=== PATIENT | male | born 1995 | race Caucasian/White ===

== ENCOUNTER 2017-09-21 20:52 | Emergency (ER) | payer OTHER ==
--- OUTSIDE RECORDS SUMMARY | 2017-09-21 20:54 | XMS REPORT | Clinical Summary ---
:1995 Author Organization [facility] Address [address] [place] [id number] Phone Care Team Providers Name Role Phone Unavailable Primary Care Provider Unavailable Allergies Not on File Current Medications Not on file Active Problems Not on file Encounters Date Type Specialty Care Team Description 09/17/2017 Orders Only Lab Yohana Farnsworth MD Cystic fibrosis with pulmonary manifestations ([facility]) (Primary Dx) 06/27/2017 Orders Only Lab Yohana Farnsworth MD CF (cystic fibrosis) ([facility]) (Primary Dx) 12/11/2016 Orders Only Lab Keyla Feng Cystic fibrosis with LIA Pittman pulmonary exacerbation ([facility]) (Primary Dx) 09/25/2016 Orders Only Lab Yohana Farnsworth MD CF (cystic fibrosis) ([facility]) (Primary Dx) after 09/20/2016 Social History Tobacco Use Types Packs/Day Years Used Date Never Assessed Sex Assigned at Date Recorded Not on file Last Filed Vital Signs Not on file Plan of Treatment Not on file Results CF Respiratory Culture ([facility] only) (09/17/2017 10:51 AM)Only the most recent of4 resultswithin the time period is included. Component Value Ref Range Result <1+ Streptococcus agalactiae (A)Comment: This is an appended report. These organism results have been appended to a previously final verified report. Specimen Performing Laboratory Sputum - Throat [address] [address] Narrative 2+ Normal respiratory tip present SPIN/CONCENTRATION CHARGE (06/27/2017 3:47 PM) Component Value Ref Range Concentration charged Done Specimen Performing Laboratory Sputum - Expectorated [address] [address] AFB culture + smear (06/27/2017 3:47 PM) Component Value Ref Range Result No acid-fast bacilli isolated in 42 days AFB Smear No acid fast bacilli seen Specimen Performing Laboratory Sputum - Expectorated [address] [address] Fungus culture + smear (06/27/2017 3:47 PM) Component Value Ref Range Result 2+ Tanika albicans (A) Fungus Smear No fungi seen Specimen Performing Laboratory Sputum - Expectorated [address] [address] after 09/20/2016
--- OUTSIDE RECORDS SUMMARY | 2017-09-21 20:54 | XMS REPORT ---
:1995 [facility] Address [address] [place] [id number] Care Team Providers Name Role Phone MOOSE METCALF MEGHANA Unavailable Unavailable KELSEA ALVARADO Unavailable Unavailable Problems This patient has no known problems. Allergies, Adverse Reactions, Alerts This patient has no known allergies or adverse reactions. Medications This patient has no known medications. Results Test Description Test Time Test Comments Text Results Atomic Results Result Comments CF RESPIRATORY CULTURE 2017-09-20 18:53:00 Test Item Value Reference Range Comments CULTURE (BEAKER) (test 2+ Normal respiratory tip <1+ Streptococcus tvvx=[id number]) present agalactiaeThis is an appended report. These organism results have been appended to a previously final verified report. 2+ Normal respiratory tip presentAFB CULTURE + [id number] 13:02:00 Test Item Value Reference Range Comments CULTURE (BEAKER) (test No acid-fast bacilli isolated oreo=8291) in 42 days AFB SMEAR (BEAKER) (test No acid fast bacilli seen qwag=824) FUNGUS CULTURE + [id number] 13:20:00 Test Item Value Reference Range Comments CULTURE (BEAKER) (test lbuk=4466) 2+ Tanika albicans FUNGUS SMEAR (BEAKER) (test No fungi seen fyep=0807) CF RESPIRATORY [id number] 08:56:00 Test Item Value Reference Range Comments CULTURE (BEAKER) (test PSEUDOMONAS 2+ Pseudomonas zekl=6570) AERUGINOSA aeruginosa Amikacin (test code=1) Susceptible 0-16 , Resistant <0 or >16 Aztreonam (test Susceptible 0-8 , code=32) Resistant <0 or >8 Cefepime (test code=51) Susceptible 0-8 , Resistant <0 or >8 Ceftazidime (test Susceptible 0-8 , code=27) Resistant <0 or >8 Ciprofloxacin (test Susceptible 0-1 , code=7) Resistant <0 or >1 Doripenem (test Susceptible 0-2 , hqre=984) Resistant <0 or >2 Gentamicin (test Susceptible 0-4 , code=18) Resistant <0 or >4 Imipenem (test code=19) Susceptible 0-2 , Resistant <0 or >2 Levofloxacin (test Susceptible 0-2 , code=22) Resistant <0 or >2 Meropenem (test Susceptible 0-2 , code=34) Resistant <0 or >2 Piperacillin (test Susceptible 0-16 , code=24) Resistant <0 or >16 Piperacillin + Susceptible 0-16 , Tazobactam (test Resistant <0 or >16 code=29) Tobramycin (test Susceptible 0-4 , code=25) Resistant <0 or >4 CULTURE (BEAKER) (test 1+ Beta-hemolytic xwmz=7087) streptococcus group B, by serological grouping CULTURE (Puma BiotechnologyAKER) (test PSEUDOMONAS 2+ Pseudomonas lykk=2646) AERUGINOSA aeruginosaof a second type Amikacin (test code=1) Susceptible 0-16 , Resistant <0 or >16 Aztreonam (test Susceptible 0-8 , code=32) Resistant <0 or >8 Cefepime (test code=51) Susceptible 0-8 , Resistant <0 or >8 Ceftazidime (test Susceptible 0-8 , code=27) Resistant <0 or >8 Ciprofloxacin (test Susceptible 0-1 , code=7) Resistant <0 or >1 Doripenem (test Susceptible 0-2 , rlmj=453) Resistant <0 or >2 Gentamicin (test Susceptible 0-4 , code=18) Resistant <0 or >4 Imipenem (test code=19) Susceptible 0-2 , Resistant <0 or >2 Levofloxacin (test Susceptible 0-2 , code=22) Resistant <0 or >2 Meropenem (test Susceptible 0-2 , code=34) Resistant <0 or >2 Piperacillin (test Susceptible 0-16 , code=24) Resistant <0 or >16 Piperacillin + Susceptible 0-16 , Tazobactam (test Resistant <0 or >16 code=29) Tobramycin (test Susceptible 0-4 , code=25) Resistant <0 or >4 CULTURE (BEAKER) (test PSEUDOMONAS 2+ Pseudomonas agid=1045) AERUGINOSA aeruginosaof a third type Amikacin (test code=1) Susceptible 0-16 , Resistant <0 or >16 Aztreonam (test Susceptible 0-8 , code=32) Resistant <0 or >8 Cefepime (test code=51) Susceptible 0-8 , Resistant <0 or >8 Ceftazidime (test Susceptible 0-8 , code=27) Resistant <0 or >8 Ciprofloxacin (test Susceptible 0-1 , code=7) Resistant <0 or >1 Doripenem (test Susceptible 0-2 , lqjf=314) Resistant <0 or >2 Gentamicin (test Susceptible 0-4 , code=18) Resistant <0 or >4 Imipenem (test code=19) Susceptible 0-2 , Resistant <0 or >2 Levofloxacin (test Susceptible 0-2 , code=22) Resistant <0 or >2 Meropenem (test Susceptible 0-2 , code=34) Resistant <0 or >2 Piperacillin (test Susceptible 0-16 , code=24) Resistant <0 or >16 Piperacillin + Susceptible 0-16 , Tazobactam (test Resistant <0 or >16 code=29) Tobramycin (test Susceptible 0-4 , code=25) Resistant <0 or >4 4+ Normal respiratory tip presentSPIN/CONCENTRATION [id number] 06:53:00 Test Item Value Reference Range Comments CONCENTRATION CHARGED (BEAKER) (test cxvj=0057) Done CF RESPIRATORY [id number] 15:11:00 Test Item Value Reference Range Comments CULTURE (BEAKER) (test 3+ Normal respiratory tip mqoq=1485) present CF RESPIRATORY [id number] 02:05:00 Test Item Value Reference Range Comments CULTURE (BEAKER) (test 3+ Normal respiratory tip rmju=2578) present
[2017-09-21] MEDS ORDERED: NA CHLORIDE 0.9% 1,000 ML ONE ×2 (21:30→22:46)
[2017-09-21 21:59] LABS: Absolute Lymphocytes (CBC) 3.1 K/uL (0.7-4.9); Absolute Monocytes 0.5 K/uL (0.1-1.3); Basophils % 0.7 % (0-1.3); Hematocrit 48.5 % (39.6-49.0); Lymphocytes % 37.8 % (15.3-44.8); MCH 29.4 pg (27.0-35.0); MCV 88.5 fL (80-100); MPV 8.6 fL (7.6-11.3); Monocytes % 5.9 % (3.3-12.3); RBC Red Blood Cell Count 5.48 M/uL (4.33-5.43)
[2017-09-21 22:00] LABS: Arterial Blood Carboxyhemoglob 0.8 % (0-1.5); Blood Gas Oxyhemoglobin 94.8 % (94-97); Blood O2 Saturation 96.4 % (92-98.5)
[2017-09-21 22:04] LABS: Protime INR 0.87
[2017-09-21 23:07] LABS: ALT/SGPT 64 U/L (12-78); AST/SGOT 39 U/L (15-37); Alcohol Serum/Plasma 167 mg/dL (<3); Alkaline Phosphatase 153 U/L (45-117); BUN Blood Urea Nitrogen 6 mg/dL (7-18); Bicarbonate 24 mmol/L (21-32); Bilirubin Direct < 0.1 mg/dL (0-0.2); Bilirubin Total 0.4 mg/dL (0.2-1.0); Glucose Level 372 mg/dL (74-106); Potassium 4.4 mmol/L (3.5-5.1); Protein, Total 7.5 g/dL (6.4-8.2); Sodium Level 138 mmol/L (136-145)
[2017-09-22] MEDS ORDERED: ONDANSETRON 4 MG/2 ML VIAL ONE (01:00)
[2017-09-22] MEDS ORDERED: INSULIN -REGULAR HUMAN 50 UNIT/0.5 ML ML ONE (01:15)
[2017-09-22 01:28] LABS: Barbiturates NEGATIVE (NEGATIVE); Benzodiazepines NEGATIVE (NEGATIVE); Cocaine NEGATIVE (NEGATIVE); METHAMPHETAM NEGATIVE (NEGATIVE); Methadone NEGATIVE (NEGATIVE); Opiates NEGATIVE (NEGATIVE); Phencyclidine NEGATIVE (NEGATIVE); THC Cannibis NEGATIVE (NEGATIVE)
[2017-09-22 02:11] LABS: Urine Blood NEGATIVE (NEG); Urine Glucose 2+ (NEG); Urine pH 5.5 (5.0-7.0)
[2017-09-22 02:12] LABS: Urine Protein NEGATIVE (NEG)
--- NOTE | 2017-09-22 02:23 | EDPHYS ---
Physician Documentation [facility] Name: Omaira Castro Age: 22 yrs Sex: Male : 1995 Arrival Date: 09/21/2017 Time: 20:54 Bed 5 Private MD: ED Physician River Serrano HPI: 09/21 21:35 This 22 yrs old Male presents to ER via Wheelchair with complaints of pkl Overdose, High Blood Sugar. 21:35 The patient presents with decreased mental status. Onset: The symptoms/episode pkl began/occurred just prior to arrival, 3 hour(s) ago. Possible causes: drug use, alcohol. Associated signs and symptoms: Pertinent positives: Elevated blood sugar. Historical: - Allergies: 21:00 Augmentin; aj1 21:00 Ceftin; aj1 - Home Meds: 21:00 Creon oral oral [Active]; insulin pump [Active]; aj1 - PMHx: 21:00 CYSTIC FIBROSIS; Diabetes - IDDM; aj1 - Immunization history:: Flu vaccine status is unknown. - Social history:: Smoking status: Patient/guardian denies using tobacco. - Ebola Screening: : Patient denies travel to an Ebola-affected area in the 21 days before illness onset. ROS: 21:35 Eyes: Negative for injury, pain, redness, and discharge, ENT: Negative for injury, pkl pain, and discharge, Neck: Negative for injury, pain, and swelling, Cardiovascular: Negative for chest pain, palpitations, and edema, Respiratory: Negative for shortness of breath, cough, wheezing, and pleuritic chest pain. 21:35 Abdomen/GI: Positive for nausea and vomiting. 21:35 Back: Negative for acute changes. 21:35 : Negative for urinary symptoms. 21:35 MS/extremity: Negative for acute changes. 21:35 Skin: Negative for rash. 21:35 Neuro: Positive for altered mental status. Exam: 21:35 Head/Face: Normocephalic, atraumatic. Eyes: Pupils equal round and reactive to light, pkl extra-ocular motions intact. Lids and lashes normal. Conjunctiva and sclera are non-icteric and not injected. Cornea within normal limits. Periorbital areas with no swelling, redness, or edema. ENT: Nares patent. No nasal discharge, no septal abnormalities noted. Tympanic membranes are normal and external auditory canals are clear. Oropharynx with no redness, swelling, or masses, exudates, or evidence of obstruction, uvula midline. Mucous membranes moist. Neck: Trachea midline, no thyromegaly or masses palpated, and no cervical lymphadenopathy. Supple, full range of motion without nuchal rigidity, or vertebral point tenderness. No Meningismus. Chest/axilla: Normal chest wall appearance and motion. Nontender with no deformity. No lesions are appreciated. Cardiovascular: Regular rate and rhythm with a normal S1 and S2. No gallops, murmurs, or rubs. Normal PMI, no JVD. No pulse deficits. Respiratory: Lungs have equal breath sounds bilaterally, clear to auscultation and percussion. No rales, rhonchi or wheezes noted. No increased work of breathing, no retractions or nasal flaring. Abdomen/GI: Soft, non-tender, with normal bowel sounds. No distension or tympany. No guarding or rebound. No evidence of tenderness throughout. Back: No spinal tenderness. No costovertebral tenderness. Full range of motion. Skin: Warm, dry with normal turgor. Normal color with no rashes, no lesions, and no evidence of cellulitis. MS/ Extremity: Pulses equal, no cyanosis. Neurovascular intact. Full, normal range of motion. 21:35 Neuro: Orientation: unable to test, the patient is clinically intoxicated, Mentation: unable to test, the patient is clinically intoxicated, Cranial nerves: unable to test, the patient is intubated, Motor: unable to test, the patient is clinically intoxicated. Vital Signs: 21:00 BP 127 / 83; Pulse 78; Resp 16; Temp 97.8(TE); Pulse Ox 97% on R/A; Weight 52.16 kg (R);aj1 22:11 BP 121 / 82; Pulse 88; Resp 17; Pulse Ox 99% on R/A; mw2 23:44 BP 104 / 77; Pulse 85; Resp 16; Pulse Ox 97% on R/A; Pain 0/10; ao 09/22 00:50 BP 117 / 89; Pulse 89; Resp 18; Pulse Ox 100% on R/A; Pain 0/10; ao 02:31 BP 101 / 69; Pulse 83; Resp 18; Pulse Ox 96% on R/A; tl2 MDM: 09/21 21:22 Patient medically screened. [facility] 09/22 02:21 Data reviewed: vital signs, nurses notes, lab test result(s), EKG. [facility] 09/21 21:14 Order name: Glucose, Ancillary Testing; Complete Time: 21:17 EDMS 09/21 21:17 Order name: Acetaminophen; Complete Time: 00:54 snw 09/21 21:17 Order name: Basic Metabolic Panel; Complete Time: 00:54 snw 09/21 21:17 Order name: CBC with Diff; Complete Time: 00:54 snw 09/21 21:17 Order name: ETOH Level; Complete Time: 00:54 snw 09/21 21:17 Order name: Hepatic Function; Complete Time: 00:54 snw 09/21 21:17 Order name: PT-INR; Complete Time: 00:54 snw 09/21 21:17 Order name: Ptt, Activated; Complete Time: 00:54 snw 09/21 21:17 Order name: Salicylate; Complete Time: 00:54 snw 09/21 21:17 Order name: Urine Drug Screen; Complete Time: 02:20 snw 09/21 21:17 Order name: ABG; Complete Time: 00:54 snw 09/21 21:17 Order name: Blood Culture Pedi (1) [facility] 09/22 00:56 Order name: Urine Dipstick--Ancillary (enter results); Complete Time: 02:20 ms 09/22 01:19 Order name: Glucose, Ancillary Testing; Complete Time: 02:20 EDMS 09/21 21:17 Order name: EKG; Complete Time: 21:18 snw 09/21 21:17 Order name: EKG - Nurse/Tech; Complete Time: 22:21 snw 09/21 21:17 Order name: IV Saline Lock; Complete Time: 21:54 snw 09/21 21:17 Order name: Labs collected and sent; Complete Time: 21:54 snw 09/21 21:17 Order name: Urine Dipstick-Ancillary (obtain specimen); Complete Time: 01:02 snw Administered Medications: 09/21 21:34 Not Given (Patient Refused): NS 0.9% (30 ml/kg) 30 ml/kg IV at bolus once; Sepsis pk Protocol 21:59 Drug: NS 0.9% 1000 ml Route: IV; Rate: 1000 ml; Site: left antecubital; ao 09/22 02:34 Follow up: IV Status: Completed infusion; IV Intake: 1000ml tl2 09/21 23:44 Drug: NS 0.9% 1000 ml Route: IV; Rate: 125 ml/hr; Site: right wrist; ao 09/22 02:34 Follow up: IV Status: Completed infusion tl2 01:02 Drug: Zofran 4 mg Route: IVP; Site: right wrist; ao 02:33 Follow up: Response: No adverse reaction; Nausea is decreased tl2 01:23 Drug: Insulin Regular Human 10 units {Co-Signature: tl2 (Omaira Thomas RN).} Route: IVP; ao Site: right wrist; 02:34 Follow up: Response: No adverse reaction; Blood sugar is lowered tl2 Point of Care Testing: Blood Glucose: 09/21 21:42 Blood Glucose: 328 mg/dL; ao Ranges: Critical Glucose Levels:Adult <50 mg/dl or >400 mg/dl <40 mg/dl or >180 mg/dl Disposition: 09/22/17 02:22 Discharged to Home. Impression: Ingestion of alcohol. Uncontrolled diabetes. - Condition is Stable. - Prescriptions for Zofran 4 mg Oral Tablet - take 1 tablet by ORAL route every 12 hours As needed; 6 tablet. - Medication Reconciliation Form, Thank You Letter, Antibiotic Education, Prescription Opioid Use form. - Follow up: Private Physician; When: 2 - 3 days; Reason: Re-evaluation by your physician. - Problem is new. - Symptoms have improved. Signatures: Dispatcher [employer] Cecile Collins RN RN aj1 River Serrano MD MD pkl Hayde Calderón, FLORAL DESIGN TEACHER-C FLORAL DESIGN TEACHER-Csnw David Hsu RN RN ao Knox, Taylor, RN RN tl2 Omaira Thomas RN tl2 Corrections: (The following items were deleted from the chart) 09/22 02:34 02:22 09/22/2017 02:22 Discharged to Home. Impression: Ingestion of alcohol. tl2 Uncontrolled diabetes. Condition is Stable. Forms are Medication Reconciliation Form, Thank You Letter, Antibiotic Education, Prescription Opioid Use. Follow up: Private Physician; When: 2 - 3 days; Reason: Re-evaluation by your physician. Problem is new. Symptoms have improved. pkl
--- NOTE | 2017-09-22 02:23 | ER ---
Nurse's Notes [facility] Name: Omaira Castro Age: 22 yrs Sex: Male : 1995 Arrival Date: 09/21/2017 Time: 20:54 Bed 5 Private MD: Diagnosis: Ingestion of alcohol. Uncontrolled diabetes Presentation: 09/21 20:58 Presenting complaint: Friend states: He drank way too much, hes been drinking pineapple aj1 and vodka and then he's throwing up and his blood sugar was 308. Patient denies pain. Family states that his insulin pump fell off when he was swimming so they weren't able to give him any insulin. Transition of care: patient was not received from another setting of care. Onset of symptoms was September 21, 2017. Risk Assessment: Do you want to hurt yourself or someone else? Patient reports no desire to harm self or others. Initial Sepsis Screen: Does the patient meet any 2 criteria? No. Patient's initial sepsis screen is negative. Does the patient have a suspected source of infection? No. Patient's initial sepsis screen is negative. Care prior to arrival: None. 20:58 Method Of Arrival: Wheelchair aj1 20:58 Acuity: GIANNI 3 aj1 Triage Assessment: 21:00 General: Appears comfortable, Behavior is drowsy. Pain: Denies pain. aj1 Historical: - Allergies: 21:00 Augmentin; aj1 21:00 Ceftin; aj1 - Home Meds: 21:00 Creon oral oral [Active]; insulin pump [Active]; aj1 - PMHx: 21:00 CYSTIC FIBROSIS; Diabetes - IDDM; aj1 - Immunization history:: Flu vaccine status is unknown. - Social history:: Smoking status: Patient/guardian denies using tobacco. - Ebola Screening: : Patient denies travel to an Ebola-affected area in the 21 days before illness onset. Screenin:30 Abuse screen: Denies threats or abuse. Denies injuries from another. Nutritional ao screening: No deficits noted. Tuberculosis screening: No symptoms or risk factors identified. Fall Risk Assessment: 21:30 General: Appears in no apparent distress. uncomfortable, Behavior is drowsy, flat, ao listless, quiet. Pain: Unable to use pain scale. Patient appears restless. Neuro: Level of Consciousness is awake, Oriented to person, situation, Moves all extremities. Full function Facial symmetry appears normal. Cardiovascular: Capillary refill < 3 seconds Patient's skin is warm and dry. Respiratory: Airway is patent Respiratory effort is even, unlabored, Respiratory pattern is regular, symmetrical. GI: Abdomen is non-distended. : No signs and/or symptoms were reported regarding the genitourinary system. EENT: No signs and/or symptoms were reported regarding the EENT system. Derm: Skin is intact, Skin is pink, warm \T\ dry. normal, Skin temperature is warm. Musculoskeletal: No signs and/or symptoms reported regarding the musculoskeletal system. 22:27 Reassessment: Patient appears in no apparent distress at this time. No changes from ao previously documented assessment. Patient and/or family updated on plan of care and expected duration. Pain level reassessed. Patient is alert, oriented x 3, equal unlabored respirations, skin warm/dry/pink. Patient sleeping with no SS of distress. Family at bedside. Blood drawn by lab. New IV initiated in the right wrist. 23:44 Reassessment: Patient appears in no apparent distress at this time. Patient and/or ao family updated on plan of care and expected duration. Pain level reassessed. Patient is alert, oriented x 3, equal unlabored respirations, skin warm/dry/pink. Patient sleeping unde no distress. Waiting on Dispo orders. 09/22 01:03 Reassessment: Patient appears in no apparent distress at this time. Patient and/or ao family updated on plan of care and expected duration. Pain level reassessed. Patient is alert, oriented x 3, equal unlabored respirations, skin warm/dry/pink. Patient vomiting DR Serrano order to give Zofran IV. 02:31 Reassessment: Patient appears in no apparent distress at this time. Patient and/or tl2 family updated on plan of care and expected duration. Pain level reassessed. Patient is alert, oriented x 3, equal unlabored respirations, skin warm/dry/pink. Pt and family verbalized understanding of discharge instructions, need for follow up and prescription usage. Vital Signs: 09/21 21:00 BP 127 / 83; Pulse 78; Resp 16; Temp 97.8(TE); Pulse Ox 97% on R/A; Weight 52.16 kg (R);aj1 22:11 BP 121 / 82; Pulse 88; Resp 17; Pulse Ox 99% on R/A; mw2 23:44 BP 104 / 77; Pulse 85; Resp 16; Pulse Ox 97% on R/A; Pain 0/10; ao 09/22 00:50 BP 117 / 89; Pulse 89; Resp 18; Pulse Ox 100% on R/A; Pain 0/10; ao 02:31 BP 101 / 69; Pulse 83; Resp 18; Pulse Ox 96% on R/A; tl2 ED Course: 09/21 20:54 Patient arrived in ED. al2 20:59 Triage completed. aj1 21:00 Arm band placed on. aj1 21:22 River Serrano MD is Attending Physician. pkl 21:31 David Hsu, MICHAEL is Primary Nurse. ao 22:30 Patient has correct armband on for positive identification. Placed in gown. Bed in low ao position. Call light in reach. Pulse ox on. NIBP on. 22:30 Inserted saline lock: 22 gauge in right hand, using aseptic technique. tl2 09/22 02:31 No provider procedures requiring assistance completed. IV discontinued, intact, tl2 bleeding controlled, No redness/swelling at site. Pressure dressing applied. Administered Medications: 09/21 21:34 Not Given (Patient Refused): NS 0.9% (30 ml/kg) 30 ml/kg IV at bolus once; Sepsis pkl Protocol 21:59 Drug: NS 0.9% 1000 ml Route: IV; Rate: 1000 ml; Site: left antecubital; ao 09/22 02:34 Follow up: IV Status: Completed infusion; IV Intake: 1000ml tl2 09/21 23:44 Drug: NS 0.9% 1000 ml Route: IV; Rate: 125 ml/hr; Site: right wrist; ao 09/22 02:34 Follow up: IV Status: Completed infusion tl2 01:02 Drug: Zofran 4 mg Route: IVP; Site: right wrist; ao 02:33 Follow up: Response: No adverse reaction; Nausea is decreased tl2 01:23 Drug: Insulin Regular Human 10 units {Co-Signature: tl2 (Omaira Thomas RN).} Route: IVP; ao Site: right wrist; 02:34 Follow up: Response: No adverse reaction; Blood sugar is lowered tl2 Point of Care Testing: Blood Glucose: 09/21 21:42 Blood Glucose: 328 mg/dL; ao Ranges: Intake: 09/22 02:34 IV: 1000ml; Total: 1000ml. tl2 Outcome: 02:22 Discharge ordered by . pkl 02:33 Discharged to home ambulatory, with family. tl2 02:33 Condition: stable 02:33 Discharge instructions given to patient, family, Instructed on discharge instructions, follow up and referral plans. medication usage, Demonstrated understanding of instructions, follow-up care, medications, Prescriptions given X 1. 02:34 Patient left the ED. tl2 Signatures: Cecile Tony RN RN aj1 River Serrano MD MD pkl David Hsu RN RN ao Knox, MICHAEL Castano RN tl2 Karolina Ortez MyKena 2 Omaira Thomas RN tl2 Corrections: (The following items were deleted from the chart) 09/21 21:01 20:58 Presenting complaint: Friend states: He drank way too much, hes been drinking aj1 pineapple and vodka and then he's throwing up and his blood sugar was 308. Patient denies pain. aj1
--- NOTE | 2017-09-22 07:17 | EKG ---
Test Date: 2017-09-21 Test Time: 22:11:52 Motion Picture Commentator: CONI MEASUREMENT RESULTS: Intervals: Rate: 81 MT: 122 QRSD: 100 QT: 370 QTc: 429 [place]: P: 60 MT: 122 QRS: 72 T: 56 INTERPRETIVE STATEMENTS: Normal sinus rhythm Incomplete right bundle branch block Borderline ECG No previous ECG available for comparison Electronically Signed On 09-22-17 07:15:56 CDT by Tima Lazar
== END 2017-09-22 02:34 | disposition home or self-care (01) ==
LOC: ER 20:52
DX: E11.65 Type 2 diabetes mellitus with hyperglycemia (principal); F10.10 Alcohol abuse, uncomplicated; Z96.41 Presence of insulin pump (external) (internal); Z79.4 Long term (current) use of insulin; Z88.1 Allergy status to other antibiotic agents
CPT/HCPCS: 36415; 80048; 80076; 80307; 80320; 80329; 81003; 82805; 82962; 85025; 85610; 85730; 87040; 93005; 96361; 96374; 96375; 99284; J2405; J7030

== ENCOUNTER 2019-03-22 09:10 | Emergency (ER) | payer OTHER ==
--- OUTSIDE RECORDS SUMMARY | 2019-03-22 09:12 | XMS REPORT ---
:1995 [facility] Address [address] [place] [address] Dr. Walker [address] [place] [id number] Care Team Providers Name Role Phone CONG CHONG Unavailable Unavailable EMELYN ROYAL Unavailable Unavailable KELSEA ALVARADO Unavailable Unavailable MOOSE METCALF Unavailable Unavailable Problems This patient has no known problems. Allergies, Adverse Reactions, Alerts This patient has no known allergies or adverse reactions. Medications This patient has no known medications. Results Test Description Test Time Test Comments Text Results Atomic Results Result Comments CF RESPIRATORY CULTURE 2019-03-06 06:24:00 Test Item Value Reference Range Comments CULTURE (BEAKER) (test PSEUDOMONAS 1+ Pseudomonas hkrg=0800) AERUGINOSA aeruginosa Amikacin (test code=1) Susceptible 0-16 , Resistant <0 or >16 Aztreonam (test Susceptible 0-8 , code=32) Resistant <0 or >8 Cefepime (test code=51) Susceptible 0-8 , Resistant <0 or >8 Ceftazidime (test Susceptible 0-8 , code=27) Resistant <0 or >8 Ciprofloxacin (test Susceptible 0-0.5 , code=7) Resistant <0 or >.5 Gentamicin (test Susceptible 0-4 , code=18) Resistant <0 or >4 Levofloxacin (test Susceptible 0-1 , code=22) Resistant <0 or >1 Meropenem (test Susceptible 0-2 , code=34) Resistant <0 or >2 Piperacillin (test Susceptible 0-16 , code=24) Resistant <0 or >16 Piperacillin + Susceptible 0-16 , Tazobactam (test Resistant <0 or >16 code=29) Tobramycin (test Susceptible 0-4 , code=25) Resistant <0 or >4 4+ Normal respiratory tip presentFUNGUS CULTURE + [id number] 16:45:00 Test Item Value Reference Range Comments CULTURE (BEAKER) (test pgsq=2226) 1+ Tanika albicans FUNGUS SMEAR (BEAKER) (test No fungi seen mrjx=9826) CF RESPIRATORY [id number] 11:44:00 Test Item Value Reference Range Comments CULTURE (BEAKER) (test 3+ Normal respiratory tip hfqm=7317) present SPIN/CONCENTRATION [id number] 14:33:00 Test Item Value Reference Range Comments CONCENTRATION CHARGED (BEAKER) (test wmdd=8876) Done ANAEROBIC [id number] 17:37:00 Test Item Value Reference Range Comments CULTURE (BEAKER) (test vdle=3480) No anaerobes isolated CF RESPIRATORY [id number] 12:48:00 Test Item Value Reference Range Comments CULTURE (BEAKER) (test 3+ Beta-hemolytic streptococcus xgok=5115) group B, by serological grouping 4+ Normal respiratory tip presentWOUND CULTURE + GRAM [id number] 06:37:00 Test Item Value Reference Range Comments CULTURE (BEAKER) (test <1+ Skin tip zjcb=1346) GRAM STAIN RESULT (BEAKER) 2+ WBCs (test ytjg=6496) GRAM STAIN RESULT (BEAKER) 1+ gram positive cocci in (test jgbk=64616) chains and pairs POCT-GLUCOSE [id number] 16:45:00 Test Item Value Reference Range Comments POC-GLUCOSE METER (BEAKER) 147 mg/dL 70-110 TESTED AT [address] (test rref=2813) [facility] [address] [id number] 14:03:00 Test Item Value Reference Range Comments BLOOD UREA NITROGEN (BEAKER) (test zfpa=822) 6 mg/dL 7-21 [id number] 14:03:00 Test Item Value Reference Range Comments CREATININE (BEAKER) (test 0.74 mg/dL 0.57-1.25 gqnk=722) EGFR (BEAKER) (test 134 mL/min/1.73 sq m ESTIMATED GFR IS NOT lsab=1725) ACCURATE CREATININE CLEARANCE IN PREDICTING GLOMERULAR FILTRATION RATE. ESTIMATED GFR IS NOT APPLICABLE FOR DIALYSIS PATIENTS. POCT-GLUCOSE [id number] 13:31:00 Test Item Value Reference Range Comments POC-GLUCOSE METER (BEAKER) 211 mg/dL 70-110 TESTED AT [address] (test uymf=6360) [facility] [address] POCT-GLUCOSE [id number] 11:25:00 Test Item Value Reference Range Comments POC-GLUCOSE METER (BEAKER) 92 mg/dL 70-110 TESTED AT [address] (test boyi=1306) [facility] [address] POCT-GLUCOSE [id number] 21:33:00 Test Item Value Reference Range Comments POC-GLUCOSE METER (BEAKER) 252 mg/dL 70-110 TESTED AT [address] (test icdy=9773) [place] [address] POCT-GLUCOSE [id number] 17:49:00 Test Item Value Reference Range Comments POC-GLUCOSE METER (BEAKER) 235 mg/dL 70-110 TESTED AT [address] (test kuep=2901) [place] [id number] POCT-GLUCOSE [id number] 15:55:00 Test Item Value Reference Range Comments POC-GLUCOSE METER (BEAKER) 135 mg/dL 70-110 TESTED AT [address] (test kldr=0506) [place] [id number] POCT-GLUCOSE [id number] 08:09:00 Test Item Value Reference Range Comments POC-GLUCOSE METER (BEAKER) 127 mg/dL 70-110 TESTED AT [address] (test dfqs=2142) [place] [id number] [id number] 07:00:00 Test Item Value Reference Range Comments BLOOD UREA NITROGEN (BEAKER) (test zshu=462) 10 mg/dL 7-21 [id number] 07:00:00 Test Item Value Reference Range Comments CREATININE (BEAKER) (test 0.70 mg/dL 0.57-1.25 oxsl=401) EGFR (BEAKER) (test 142 mL/min/1.73 sq m ESTIMATED GFR IS NOT qwnr=2153) ACCURATE CREATININE CLEARANCE IN PREDICTING GLOMERULAR FILTRATION RATE. ESTIMATED GFR IS NOT APPLICABLE FOR DIALYSIS PATIENTS. TOBRAMYCIN LEVEL, [id number] 06:54:00 Test Item Value Reference Range Comments TOBRAMYCIN RANDOM (BEAKER) (test laas=973) 0.5 ug/mL Reference Range: No NormalsPOCT-GLUCOSE [id number] 00:33:00 Test Item Value Reference Range Comments POC-GLUCOSE METER (BEAKER) 313 mg/dL 70-110 Notified MICHAEL MEEKS/TESTED AT [facility] (test pali=0019) [address] [facility] [address] POCT-GLUCOSE [id number] 21:24:00 Test Item Value Reference Range Comments POC-GLUCOSE METER (ZORA) 448 mg/dL 70-110 Notified MICHAEL MEEKS/TESTED AT [facility] (test ecak=1920) [address] [facility] [address] RAD, CHEST, 1 VIEW, NON [id number] 17:35:00Reason for exam:->CHECK PICC PLACEMENT Should this be performed at the bedside?->YesFINAL REPORT INDICATION: CHECK PICC PLACEMENT COMPARISON:January 21, 2018 at2 :20 PM TECHNIQUE: Chest radiograph, single view, portable technique. FINDINGS / IMPRESSION: There is interval placement of a right PICC line that terminates in the low SVC, good position. Lungs are clear and cardiac and mediastinal contours normal. Bone density necklace overlies the mediastinum. Signed: Coleman Lopez Verified Date/Time: 01/21/2018 17:35:59 Reading Location: [place] [id number] Consult Reading Room HEMOGLOBIN [id number] 16:24:00 Test Item Value Reference Range Comments HEMOGLOBIN A1C (ZORA) (test uxex=463) 7.7 % 4.3-6.1 RAD, CHEST, 2 [id number] 14:40:00Reason for exam:->Cystic FibrosisShould this be performed at the bedside?->NoFINAL REPORT INDICATION: Cystic Fibrosis COMPARISON: None TECHNIQUE: Frontal and lateral views of the chest. FINDINGS: Lungs and pleura: Clear lungs. No effusion.Heart and mediastinum: Normal heart size. Unremarkable mediastinal contours.Osseous structures: No acute abnormality.Additional findings: None. IMPRESSION: No acute intrathoracic abnormality. Signed: JR Schultz Robert MDReport Verified Date/Time: 01/21/2018 14:40:01 Reading Location: [place] [id number] Consult Reading Room RAD, SINUSES PARANASAL, MIN 3 [id number] 14:40: 00Reason for exam:->sinusitisFINAL REPORT RAD, SINUSES PARANASAL, MIN 3 VIEWS INDICATION: sinusitis COMPARISON: None TECHNIQUE : Frontal, oblique and lateral views of the paranasal sinuses. IMPRESSION: Paranasal sinus opacification is not present. Visible mastoid air cells are clear. No sclerotic or erosivechanges are evident. The mandible is intact. There are no periapical lucencies. Orbital rims are preserved. Septum is midline. Signed: JR Schultz Robert MDReport Verified Date/Time: 2017 14:40:59 Reading Location: [address] Consult Reading Room CBC W/ PLT COUNT & AUTO [id number] 13:37:00 Test Item Value Reference Range Comments WHITE BLOOD CELL COUNT (BEAKER) (test wkdo=551) 6.7 K/ L 3.5-10.5 RED BLOOD CELL COUNT (BEAKER) (test bnre=923) 5.41 M/ L 4.63-6.08 HEMOGLOBIN (BEAKER) (test rayt=058) 15.8 GM/DL 13.7-17.5 HEMATOCRIT (BEAKER) (test elsx=656) 48.2 % 40.1-51.0 MEAN CORPUSCULAR VOLUME (BEAKER) (test jtex=137) 89.1 fL 79.0-92.2 MEAN CORPUSCULAR HEMOGLOBIN (BEAKER) (test 29.2 pg 25.7-32.2 gxop=216) MEAN CORPUSCULAR HEMOGLOBIN CONC (BEAKER) (test 32.8 GM/DL 32.3-36.5 fyat=505) RED CELL DISTRIBUTION WIDTH (BEAKER) (test 11.9 % 11.6-14.4 tkfg=205) PLATELET COUNT (BEAKER) (test zyii=536) 351 K/CU MM 150-450 MEAN PLATELET VOLUME (BEAKER) (test hulk=087) 9.9 fL 9.4-12.4 NUCLEATED RED BLOOD CELLS (BEAKER) (test 0 /100 WBC 0-0 shii=439) NEUTROPHILS RELATIVE PERCENT (BEAKER) (test 39 % fjjq=571) LYMPHOCYTES RELATIVE PERCENT (BEAKER) (test 45 % grqg=641) MONOCYTES RELATIVE PERCENT (BEAKER) (test 8 % cyep=906) EOSINOPHILS RELATIVE PERCENT (BEAKER) (test 7 % bmox=247) BASOPHILS RELATIVE PERCENT (BEAKER) (test 1 % pzgl=869) NEUTROPHILS ABSOLUTE COUNT (BEAKER) (test 2.60 K/ L 1.78-5.38 mrpb=980) LYMPHOCYTES ABSOLUTE COUNT (BEAKER) (test 3.00 K/ L 1.32-3.57 bmpn=954) MONOCYTES ABSOLUTE COUNT (BEAKER) (test 0.55 K/ L 0.30-0.82 renk=793) EOSINOPHILS ABSOLUTE COUNT (BEAKER) (test 0.48 K/ L 0.04-0.54 axdw=559) BASOPHILS ABSOLUTE COUNT (BEAKER) (test 0.05 K/ L 0.01-0.08 fslp=931) IMMATURE GRANULOCYTES-RELATIVE PERCENT (BEAKER) 0 % 0-1 (test edig=0316) [id number] 13:36:00 Test Item Value Reference Range Comments PHOSPHORUS (BEAKER) (test dbme=927) 3.2 mg/dL 2.3-4.7 [id number] 13:36:00 Test Item Value Reference Range Comments MAGNESIUM (BEAKER) (test xfru=669) 2.1 mg/dL 1.6-2.6 COMPREHENSIVE METABOLIC [id number] 13:36:00 Test Item Value Reference Range Comments TOTAL PROTEIN (BEAKER) 6.7 gm/dL 6.0-8.3 (test xgdb=142) ALBUMIN (BEAKER) (test 4.3 g/dL 3.5-5.0 htjh=7389) ALKALINE PHOSPHATASE 94 U/L 40-150 (BEAKER) (test eynu=243) BILIRUBIN TOTAL (BEAKER) 0.3 mg/dL 0.2-1.2 (test sasx=689) SODIUM (BEAKER) (test 140 meq/L 136-145 uwyx=930) POTASSIUM (BEAKER) (test 3.9 meq/L 3.5-5.1 jtmo=250) CHLORIDE (BEAKER) (test 108 meq/L 98-107 psaf=933) CO2 (BEAKER) (test 25 meq/L 22-29 edgv=610) BLOOD UREA NITROGEN 12 mg/dL 7-21 (BEAKER) (test kdyl=844) CREATININE (BEAKER) (test 0.77 mg/dL 0.57-1.25 vqkd=995) GLUCOSE RANDOM (BEAKER) 140 mg/dL 70-105 (test kxbn=077) CALCIUM (BEAKER) (test 9.2 mg/dL 8.4-10.2 gzrx=271) AST (SGOT) (BEAKER) (test 15 U/L 5-34 cvek=637) ALT (SGPT) (BEAKER) (test 21 U/L 6-55 sfay=463) EGFR (BEAKER) (test 128 mL/min/1.73 sq ESTIMATED GFR IS NOT zgtk=5618) m ACCURATE CREATININE CLEARANCE IN PREDICTING GLOMERULAR FILTRATION RATE. ESTIMATED GFR IS NOT APPLICABLE FOR DIALYSIS PATIENTS. GAMMA GLUTAMYL TRANSFERASE (GGT)2018-01-21 13:36:00 Test Item Value Reference Range Comments GAMMA GLUTAMYL TRANSFERASE (BEAKER) (test ilkn=099) 14 U/L 9-64 TOBRAMYCIN LEVEL, [id number] 13:35:00 Test Item Value Reference Range Comments TOBRAMYCIN RANDOM (BEAKER) (test uvzf=150) < ug/mL Reference Range: No NormalsRandom level to be drawn 12 hours after first dose.POCT-GLUCOSE [id number] 13:11:00 Test Item Value Reference Range Comments POC-GLUCOSE METER (BEAKER) 133 mg/dL 70-110 TESTED AT [facility] [address] [facility] (test hjyo=7491) [facility] [address] CF RESPIRATORY [id number] 15:11:00 Test Item Value Reference Range Comments CULTURE (BEAKER) (test ddra=0820) <1+ Pseudomonas aeruginosa 2+ Normal respiratory tip presentCF RESPIRATORY [id number] 18:53:00 Test Item Value Reference Range Comments CULTURE (BEAKER) 2+ Normal respiratory <1+ Streptococcus (test wzan=0352) tip present agalactiaeThis is an appended report. These organism results have been appended to a previously final verified report. 2+ Normal respiratory tip presentAFB CULTURE + [id number] 13:02:00 Test Item Value Reference Range Comments CULTURE (BEAKER) (test No acid-fast bacilli isolated mtpk=7722) in 42 days AFB SMEAR (BEAKER) (test No acid fast bacilli seen blsu=043) FUNGUS CULTURE + [id number] 13:20:00 Test Item Value Reference Range Comments CULTURE (BEAKER) (test wwig=3035) 2+ Tanika albicans FUNGUS SMEAR (BEAKER) (test No fungi seen fmxi=1979) CF RESPIRATORY [id number] 08:56:00 Test Item Value Reference Range Comments CULTURE (BEAKER) (test PSEUDOMONAS 2+ Pseudomonas snnw=1875) AERUGINOSA aeruginosa Amikacin (test code=1) Susceptible 0-16 , Resistant <0 or >16 Aztreonam (test Susceptible 0-8 , code=32) Resistant <0 or >8 Cefepime (test code=51) Susceptible 0-8 , Resistant <0 or >8 Ceftazidime (test Susceptible 0-8 , code=27) Resistant <0 or >8 Ciprofloxacin (test Susceptible 0-1 , code=7) Resistant <0 or >1 Doripenem (test Susceptible 0-2 , sydb=083) Resistant <0 or >2 Gentamicin (test Susceptible [...] or >4 CULTURE (BEAKER) (test 1+ Beta-hemolytic npgv=3755) streptococcus group B, by serological grouping CULTURE (BEAKER) (test PSEUDOMONAS 2+ Pseudomonas xujy=8906) AERUGINOSA aeruginosaof a second type Amikacin (test code=1) Susceptible 0-16 , Resistant <0 or >16 Aztreonam (test Susceptible 0-8 , code=32) Resistant <0 or >8 Cefepime (test code=51) Susceptible 0-8 , Resistant <0 or >8 Ceftazidime (test Susceptible 0-8 , code=27) Resistant <0 or >8 Ciprofloxacin (test Susceptible 0-1 , code=7) Resistant <0 or >1 Doripenem (test Susceptible 0-2 , ipqb=163) Resistant <0 or >2 Gentamicin (test Susceptible [...] , code=25) Resistant <0 or >4 CULTURE (PeerbyAKER) (test PSEUDOMONAS 2+ Pseudomonas cmfa=2157) AERUGINOSA aeruginosaof a third type Amikacin (test code=1) Susceptible 0-16 , Resistant <0 or >16 Aztreonam (test Susceptible 0-8 , code=32) Resistant <0 or >8 Cefepime (test code=51) Susceptible 0-8 , Resistant <0 or >8 Ceftazidime (test Susceptible 0-8 , code=27) Resistant <0 or >8 Ciprofloxacin (test Susceptible 0-1 , code=7) Resistant <0 or >1 Doripenem (test Susceptible 0-2 , nkkz=680) Resistant <0 or >2 Gentamicin (test Susceptible [...] or >4 4+ Normal respiratory tip presentSPIN/CONCENTRATION [id number] 06:53:00 Test Item Value Reference Range Comments CONCENTRATION CHARGED (BEAKER) (test bmoq=6838) Done CF RESPIRATORY [id number] 15:11:00 Test Item Value Reference Range Comments CULTURE (BEAKER) (test 3+ Normal respiratory tip bdmo=5090) present CF RESPIRATORY [id number] 02:05:00 Test Item Value Reference Range Comments CULTURE (BEAKER) (test 3+ Normal respiratory tip eysi=9445) present
[2019-03-22] MEDS ORDERED: ONDANSETRON 4 MG (ODT) TAB ONE (09:31)
[2019-03-22] MEDS ORDERED: IBUPROFEN 200 MG TAB PO ONE (09:31)
--- NOTE | 2019-03-22 09:57 | ER ---
Nurse's Notes [facility] Name: Omaira Castro Age: 24 yrs Sex: Male : 1995 Arrival Date: 03/22/2019 Time: 09:12 Bed 13 Private MD: Pradip Be V Diagnosis: Influenza due to identified novel influenza A virus Presentation: 03/22 09:23 Presenting complaint: Patient states: body aches, fever and cough that began yesterday. ss No antipyretics taken as of today. Transition of care: patient was not received from another setting of care. Onset of symptoms was March 21, 2019. Risk Assessment: Do you want to hurt yourself or someone else? Patient reports no desire to harm self or others. Initial Sepsis Screen: Does the patient meet any 2 criteria? Temp <36.0*C (96.8*F)) or > 38.3*C (100.9*F). HR > 90 bpm. Does the patient have a suspected source of infection? No. Patient's initial sepsis screen is negative. Care prior to arrival: None. 09:23 Method Of Arrival: Ambulatory ss 09:23 Acuity: GIANNI 3 ss Historical: - Allergies: 09:24 Augmentin; ss 09:24 Ceftin; ss - Home Meds: 09:24 Insulin pump [Active]; ss - PMHx: 09:24 CYSTIC FIBROSIS; Diabetes - IDDM; ss - PSHx: 09:24 sinus; ss - Immunization history:: Adult Immunizations up to date. - Coronavirus screen:: The patient has NOT traveled to [place], [place], or [place] in the past 14 days. - Social history:: Smoking status: Patient denies any tobacco usage or history of. - Ebola Screening: : Patient denies exposure to infectious person Patient denies travel to an Ebola-affected area in the 21 days before illness onset. Screenin:08 Abuse screen: Denies threats or abuse. Denies injuries from another. Nutritional ss screening: No deficits noted. Tuberculosis screening: Never had TB. Fall Risk None identified. Assessment: 09:23 General: Appears uncomfortable, ill, Behavior is calm, cooperative, Reports chills for ss 12-24 hours, fever for 12-24 hours, feeling ill for 12-24 hours, fatigue for 12-24 hours. Pain: Complains of pain in generalized body aches Pain currently is 6 out of 10 on a pain scale. Quality of pain is described as aching, Pain began since yesterday evening. Is continuous. Neuro: Level of Consciousness is awake, alert, obeys commands, Oriented to person, place, time, situation. Cardiovascular: Capillary refill < 3 seconds is brisk in bilateral fingers. Respiratory: Reports cough that is hacking, since yesterday Airway is patent Respiratory effort is even, unlabored, Respiratory pattern is regular, symmetrical, Breath sounds are clear bilaterally. GI: Reports vomiting x1 this morning after having a coughing fit Patient currently denies diarrhea, nausea. EENT: Oral mucosa is dry. Throat is clear. Derm: Skin is normal, Skin temperature is hot. Musculoskeletal: Circulation, motion, and sensation intact. Range of motion: intact in all extremities, Swelling absent. 10:08 Reassessment: Pt has drank 120 mL of water. Additional 120 mL of water provided. Pt ss encouraged to drink. Discussed dc planning with patient and family who verbalize understanding. Armida notified of updated VS and suggests to keep patient for additional time for extended monitoring for elevated pulse. Vital Signs: 09:22 BP 109 / 68; Pulse 130; Resp 18; Temp 101.9(TE); Pulse Ox 94% on R/A; Weight 54.43 kg; ss Height 5 ft. 4 in. (162.56 cm); Pain 6/10; 10:08 Pulse 129; Resp 15; Temp 100.6(O); Pulse Ox 96% on R/A; ss 10:43 Pulse 113; Resp 16; Temp 100.3(O); Pulse Ox 96% on R/A; ss 09:22 Body Mass Index 20.60 (54.43 kg, 162.56 cm) ED Course: 09:12 Patient arrived in ED. es 09:12 Pradip Be MD is Private Physician. es 09:13 Armida Hernandez FNP-C [facility]. kb 09:13 Van Hoskins MD is Attending Physician. kb 09:22 Leonor García, MICHAEL is Primary Nurse. ss 09:22 Arm band placed on right wrist. ss 09:24 Triage completed. ss 10:08 Patient has correct armband on for positive identification. Bed in low position. Adult ss w/ patient. 10:08 No provider procedures requiring assistance completed. Patient did not have IV access ss during this emergency room visit. Administered Medications: 09:30 Drug: Zofran 4 mg Route: PO; ss 10:08 Follow up: Response: No adverse reaction; Nausea is decreased ss 09:34 Drug: Motrin 400 mg Route: PO; ss 10:08 Follow up: Response: No adverse reaction; Temperature is decreased ss 10:04 Drug: Tamiflu 75 mg Route: PO; ss 10:46 Follow up: Response: Medication administered at discharge. ss Outcome: 09:56 Discharge ordered by . kb 10:08 Discharge instructions given to patient, family, Instructed on discharge instructions, ss follow up and referral plans. medication usage, Demonstrated understanding of instructions, follow-up care, medications, Prescriptions given X 2. 10:43 Discharged to home ambulatory, with family. ss 10:43 Condition: good 10:45 Patient left the ED. ss Signatures: Armida Hernandez, WATER SYSTEM OPERATOR-C WATER SYSTEM OPERATOR-Faith Martini Shelby, RN RN ss Corrections: (The following items were deleted from the chart) 10:08 10:08 Pulse 139bpm; Resp 15bpm; Pulse Ox 96% RA; Temp 100.6F Oral; ss ss
--- NOTE | 2019-03-22 09:58 | EDPHYS ---
Physician Documentation [facility] Name: Omaira Castro Age: 24 yrs Sex: Male : 1995 Arrival Date: 03/22/2019 Time: 09:12 Bed 13 Private MD: Pradip Be V ED Physician Van Hoskins HPI: 03/22 09:39 This 24 yrs old Male presents to ER via Ambulatory with complaints of Flu kb Symptoms. 09:40 The patient or guardian reports cough, that is intermittent, described as moderate, kb with no sputum, flu symptoms, low-grade fever, myalgias. Onset: The symptoms/episode began/occurred yesterday. Severity of symptoms: At their worst the symptoms were moderate, in the emergency department the symptoms are unchanged. Modifying factors: The symptoms are alleviated by nothing, the symptoms are aggravated by nothing. Associated signs and symptoms: Pertinent positives: fever, nausea, vomiting. The patient has not experienced similar symptoms in the past. The patient has not recently seen a physician. Historical: - Allergies: 09:24 Augmentin; ss 09:24 Ceftin; ss - Home Meds: 09:24 Insulin pump [Active]; ss - PMHx: 09:24 CYSTIC FIBROSIS; Diabetes - IDDM; ss - PSHx: 09:24 sinus; ss - Immunization history:: Adult Immunizations up to date. - Coronavirus screen:: The patient has NOT traveled to [place], [place], or [place] in the past 14 days. - Social history:: Smoking status: Patient denies any tobacco usage or history of. - Ebola Screening: : Patient denies exposure to infectious person Patient denies travel to an Ebola-affected area in the 21 days before illness onset. ROS: 09:39 ENT: Negative for injury, pain, and discharge, Neck: Negative for injury, pain, and kb swelling, Cardiovascular: Negative for chest pain, palpitations, and edema, Back: Negative for injury and pain, MS/Extremity: Negative for injury and deformity, Skin: Negative for injury, rash, and discoloration. 09:39 Constitutional: Positive for body aches, chills, fatigue, fever, malaise. 09:39 Respiratory: Positive for cough. 09:39 Abdomen/GI: Positive for nausea and vomiting. 09:39 Neuro: Positive for headache. Exam: 09:38 Constitutional: This is a well developed, well nourished patient who is awake, alert, kb and in no acute distress. Head/Face: Normocephalic, atraumatic. ENT: Nares patent. No nasal discharge, no septal abnormalities noted. Tympanic membranes are normal and external auditory canals are clear. Oropharynx with no redness, swelling, or masses, exudates, or evidence of obstruction, uvula midline. Mucous membranes moist. Neck: Trachea midline, no thyromegaly or masses palpated, and no cervical lymphadenopathy. Supple, full range of motion without nuchal rigidity, or vertebral point tenderness. No Meningismus. Chest/axilla: Normal chest wall appearance and motion. Nontender with no deformity. No lesions are appreciated. Cardiovascular: Regular rate and rhythm with a normal S1 and S2. No gallops, murmurs, or rubs. Normal PMI, no JVD. No pulse deficits. Respiratory: Lungs have equal breath sounds bilaterally, clear to auscultation and percussion. No rales, rhonchi or wheezes noted. No increased work of breathing, no retractions or nasal flaring. Abdomen/GI: Soft, non-tender, with normal bowel sounds. No distension or tympany. No guarding or rebound. No evidence of tenderness throughout. Back: No spinal tenderness. No costovertebral tenderness. Full range of motion. Skin: Warm, dry with normal turgor. Normal color with no rashes, no lesions, and no evidence of cellulitis. MS/ Extremity: Pulses equal, no cyanosis. Neurovascular intact. Full, normal range of motion. Neuro: Awake and alert, GCS 15, oriented to person, place, time, and situation. Cranial nerves II-XII grossly intact. Motor strength 5/5 in all extremities. Sensory grossly intact. Cerebellar exam normal. Normal gait. Vital Signs: 09:22 BP 109 / 68; Pulse 130; Resp 18; Temp 101.9(TE); Pulse Ox 94% on R/A; Weight 54.43 kg; ss Height 5 ft. 4 in. (162.56 cm); Pain 6/10; 10:08 Pulse 129; Resp 15; Temp 100.6(O); Pulse Ox 96% on R/A; ss 10:43 Pulse 113; Resp 16; Temp 100.3(O); Pulse Ox 96% on R/A; ss 09:22 Body Mass Index 20.60 (54.43 kg, 162.56 cm) ss MDM: 09:16 Patient medically screened. kb 09:38 Data reviewed: vital signs, nurses notes. Data interpreted: Pulse oximetry: on room air kb is 94 %. Interpretation: acceptable. 09:56 Counseling: I had a detailed discussion with the patient and/or guardian regarding: the kb historical points, exam findings, and any diagnostic results supporting the discharge/admit diagnosis, lab results, the need for outpatient follow up, a family practitioner, to return to the emergency department if symptoms worsen or persist or if there are any questions or concerns that arise at home. 03/22 09:24 Order name: Flu; Complete Time: 09:56 kb 03/22 09:57 Order name: PO challenge; Complete Time: 10:04 kb Administered Medications: 09:30 Drug: Zofran 4 mg Route: PO; ss 10:08 Follow up: Response: No adverse reaction; Nausea is decreased ss 09:34 Drug: Motrin 400 mg Route: PO; ss 10:08 Follow up: Response: No adverse reaction; Temperature is decreased ss 10:04 Drug: Tamiflu 75 mg Route: PO; ss 10:46 Follow up: Response: Medication administered at discharge. ss Disposition: 16:30 Co-signature as Attending Physician, Van Hoskins MD I agree with the assessment and kdr plan of care. Disposition: 03/22/19 09:56 Discharged to Home. Impression: Influenza due to identified novel influenza A virus. - Condition is Stable. - Discharge Instructions: Influenza, Adult, [id number]. - Prescriptions for Tamiflu 75 mg Oral Capsule - take 1 capsule by ORAL route every 12 hours for 5 days; 10 capsule. Zofran 4 mg Oral Tablet - take 1 tablet by ORAL route every 6 hours As needed; 20 tablet. - Medication Reconciliation Form, Thank You Letter, Antibiotic Education, Prescription Opioid Use form. - Follow up: Emergency Department; When: As needed; Reason: Worsening of condition. Follow up: Private Physician; When: 2 - 3 days; Reason: Recheck today's complaints, Continuance of care, Re-evaluation by your physician. Signatures: Dispatcher [employer] Armida Dominguez, CL-C CL-Van Cole MD MD kdr Leonor García, RN RN ss Corrections: (The following items were deleted from the chart) 10:45 09:56 03/22/2019 09:56 Discharged to Home. Impression: Influenza due to identified ss novel influenza A virus. Condition is Stable. Forms are Medication Reconciliation Form, Thank You Letter, Antibiotic Education, Prescription Opioid Use. Follow up: Emergency Department; When: As needed; Reason: Worsening of condition. Follow up: Private Physician; When: 2 - 3 days; Reason: Recheck today's complaints, Continuance of care, Re-evaluation by your physician. kb
[2019-03-22] MEDS ORDERED: OSELTAMIVIR 75 MG CAP ONE (10:02)
[2019-03-22 11:13] VITALS: BP 109/68
[2019-03-22 11:15] VITALS: O2SAT 96
[2019-03-22 11:16] VITALS: TEMP 100.3
== END 2019-03-22 10:45 | disposition home or self-care (01) ==
LOC: ER 09:10
DX: J09.X2 Influenza due to identified novel influenza A virus with other respiratory manifestations (principal); Z88.1 Allergy status to other antibiotic agents; E11.9 Type 2 diabetes mellitus without complications; Z79.4 Long term (current) use of insulin
CPT/HCPCS: 87804; 99283

== ENCOUNTER 2022-04-16 07:19 | Emergency (ER) | payer OTHER, SELFPAY ==
--- OUTSIDE RECORDS SUMMARY | 2022-04-16 07:25 | XMS REPORT | Continuity of Care Document ---
:1995 Author Organization [facility] t Address [address] [place] [address] Care Team Providers Name Role Phone ANABELA, CRUZ Attending Clinician Unavailable NEO CLARK Attending Clinician Unavailable Neo Clark MD Attending Clinician NEO CLARK Attending Clinician Unavailable SANTANA GANNON Attending Clinician Unavailable Santana Gannon MD Attending Clinician Perry Shen Attending Clinician KELSEA ALVARADO Attending Clinician Unavailable WILTON NEWTON Attending Clinician Unavailable Tyron MEEKS, Gus Murray Attending Clinician [phone] CONG CHONG Attending Clinician Unavailable EMELYN ROYAL Attending Clinician Unavailable KELSEA ALVARADO Attending Clinician Unavailable MOOSE FARNSWORTH Attending Clinician Unavailable SANTANA GANNON Admitting Clinician Unavailable EMELYN ROYAL Admitting Clinician Unavailable Payers Payer Name Policy Type Policy Number Effective Date Expiration Date S yang GENERIC-CIGNA - [id number] 2021 00:00:00 CIGNA GENERIC PPO - [id number] GENERIC PAYOR CIGNA [id number] 2014 00:00:00 HMO/POS/OPEN ACCESS Problems Condition Condition Condition Status Onset Resolution Last Treating Co mments Source Name Details Category Date Date Treatment Clinician Date 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 Last Assessmen t & Plan: Continue pancreati c enzyme supplemen tation Chronic Chronic Disease Active Overview: [facility] sinusitis sinusitis 10-01 Formattin L ukes 00:00: g of this Medical 00 note Center might be different from the original. Last Assessmen t & Plan: Patient states mild sinus congestio n. Has a history of chronic sinusitis . Will refer to Dr Gonzalez at this time. Weight Weight Disease Active [facility] loss loss 10-01 [place] 00:00: of 00 Medicin e Sinusitis, Sinusitis, Disease Active Last Isidro tone acute acute 10-01 [facility] 00:00: t & Plan: of 00 Patient Medicin reports e increase in sinus drainage, post nasal drip and congestio n. No nasal rinses, nasal steroid or Claritin. Discussed with patient to increase complianc e with this regimen given current symptoms. 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 Overview: Overview: OGTT Date: 04/25/13 Fastin 2Hour: 418A1c Date: 06/17/13 A1c: 6.4%Other : Last Assessmen t & Plan: Seen by Dr. Chery today, will have CFRD follow up on SundayJanuary 26. Overview: OGTT Date: 04/25/13 Fastin 2Hour: 418A1c Date: 06/17/13 A1c: 6.4%Other : Cystic Cystic Disease Active Overview: [facility] fibrosis fibrosis 10-10 Sherry Boyce es 00:00: g of this Medical 00 note Center might be different from the original. Overview: PUL CF Diagnosis (Do Not Remove)Ye ar of CF Dx: 1997Metho d: sweat testPrese ntation: clinical symptomsD ate of Genotype 1: 7Genotype Mutation 1: [id number] of Genotype 2: 7Gentotyp e Mutation 2: [id number] of Sweat Test # 1: 7Sweat Test 1: 96 Malnutriti Malnutriti Disease Active Overview : [facility] on on 10-10 Formatjoanna Bray 00:00: g of this Medical 00 note Center might be different from the original. Last Assessmen t & Plan: Formattin g of this note might be different from the original. Vitals 11/24/2016 11/24/2016 7 7 WEIGHT 116 116 120 120 HEIGHT 5' 3.75" 5' 3.75" 5' 3.75" 5' 3.75" BODY MASS INDEX 20.07 20.07 20.76 20.76 Patient's weight stable from previous visit. Discussed supplemen t use and increased caloric intake with consisten t enzyme use with patient. States he is in need of supplemen ts, will discuss with Misty Hernandez RD. Patient states no current GI issues. No abdominal pain, no bloating, no constipat ion, no diarrhea. 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 PFT Results 06/27/2017 09/17/2017 8 8 FEV1 2.35 2.76 2.16 2.27 FEV1 % Exp 60 71 55 58 FVC 3.63 3.76 3.05 3.09 FVC % Expected 79 82 67 67 FEV1 / FVC 0.67 0.76 0.73 0.77 FEV1 / FVC % Exp 80 91 87 92 FEF 25-75% 1.54 2.27 1.58 1.93 FEF % Expec 35 52 36 44 PFT Results 8 FEV1 1.89 FEV1 % Exp 48 FVC 3.06 FVC % Expected 67 FEV1 / FVC 0.63 FEV1 / FVC % Exp 76 FEF 25-75% 1.06 FEF % Expec 24 Patient presents to clinic for a sick visit with plans for direct admission to [facility] after failing 2 weeks PO Cipro with increased breathing treatment /airway complianc e. Patient remains with mild increase in cough and sputum productio n subjectiv aidan. PFT's remain below baseline. Of note patient has not had IV antibioti cs in 7 years. Will admit patient at this time for a moderate pulmonary exacerbat ion. Follow up in clinic in two weeks upon completio n of IV antibioti c therapy. Hospital Recommend ations as follow: 1. Place PICC2. Baseline CBC/CMP with daily BUN/Creat inine3. IV Tobramyci n 10 mg/kg/day and IV Merrem 2 grams Q 8 hours4. Consult ENT5. Please note this is patients first admission to [facility] with the adult CF Team, patient will require thorough teaching prior to discharge for home IV antibioti c regimen. MSSA MSSA Disease Active [facility] (methicill (methicill Co llege in-suscept in-suscept of ible ible Medicin Staphyloco Staphyloco e ccus ccus aureus) aureus) colonizati colonizati on on Osteoporos Osteoporos Disease Active B zheng is is [employer] Allergies, Adverse Reactions, Alerts Allergy Allergy Status Severity Reaction(s) Onset Inactive Treating Comm ents Source Name Type Date Date Clinician Ceftazid Propensi Active 2017-02 Per [facility] kwesi ty to 03-23 patient College adverse 00:00: of reaction 00 Medicin s to e drug Amoxicil Drug Active Hives 2017-[address] [facility] filiberto-Pot Allergy 03-23 [facility] Clavulan 00[facility]: Medical ate 00 Center Cefuroxi Drug Active Hives 2017-[address] [facility] me Allergy 03-23 [facility] Axetil 00:00: Medical 00 Center AMOXICIL Allergy Active Hives 2017-02 [facility] FILIBERTO-POT 03-23 CLA[facility]AN 00:00: ATE 00 CEFUROXI Allergy Active Hives 2017-02 [facility] ME 03-23 AXETIL 00:00: 00 Amoxicil Propensi Active [facility] filiberto-Pot ty to 10-10 [place] Clavulan adverse 00:00: of ate reaction 00 Medicin s to e drug Cefuroxi Propensi Active [facility] ty to 815 [place] Axetil adverse 00:00: of reaction 00 Medicin s to e drug Family History Family Member Diagnosis Comments Start Date Stop Date Source Natural father Hypertension [facility] Maternal grandfather Heart disease [facility] Maternal grandmother Cancer [facility] Maternal grandmother Kidney disease [facility] Natural mother Cancer [facility] Natural mother Hypertension [facility] Social History Social Habit Start Date Stop Date Quantity Comments Source History SDOH [facility] Alcohol Std Drinks Medica l Center History SDOH [facility] Alcohol Binge Medical Divya ter History SDOH [facility] Alcohol Comment Medical C enter History SDOH 2018-01-21 2018-01-[address] [facility] Alcohol Frequency 00:00:00 00:00:00 [facility] Tobacco use and 2018-01-21 2018-01-[address] [facility] Rizwana kes exposure 00:00:00 00:00:00 [facility] Alcohol intake 2018-01-21 2018-01-[address] [facility] es 00:00:00 00:00:00 non-drinker of Medical Ce nter alcohol (finding) Sex Assigned At [address] Rizwana kes 00:00:00 00:00:00 [facility] Smoking Status Start Date Stop Date Source Never smoker [facility] o f Medicine Medications Ordered Filled Start Stop Current Ordering Indication Dosage Frequency Signature Comments Components Source Medication Medication Date Date Medication? Clinician (SIG) Name Name cholecalcif 2021-02 Yes 1{capsu Take [address] jose, 1-16 le} capsule by [facility] vitamin D3, 15:13: mouth. Medi addi 2,000 unit 16 [place] Cap cyanocobala 2021-02 Yes 1000ug Take 1,[address] [facility] min 1000 1-16 mcg by [facility] MCG tablet 15:13: mouth. Medic al 16 [place] vitamin A 2021-02 Yes 8000U Take 8,[address] 8000 UNIT 1-16 Units by [facility] capsule 15:13: mouth. Medical 16 [place] VITAMIN B 2021-02 Yes Take by [facility] COMPLEX 1-16 mouth. [facility] ORAL 15:13: Medical 16 [place] elexacaftor 2021-02 Yes 2{tbl} QD Take [address] -tezacaftor 0-26 tablets by Rizwana kes -ivacaft 00:00: mouth Medical 100-50-75 00 daily. Center mg(d) /150 mg (n) TbSQ elexacaftor 2021-02 Yes 2{tbl} QD Take [address] -tezacaftor 0-26 tablets by Rizwana kes -ivacaft 00:00: mouth Medical 100-50-75 00 daily. Center mg(d) /150 mg (n) TbSQ elexacaftor 2021-02 Yes 2{tbl} QD Take [address] -tezacaftor 0-26 tablets by Rizwana kes -ivacaft 00:00: mouth Medical 100-50-75 00 daily. Center mg(d) /150 mg (n) TbSQ elexacaftor 2021-02 Yes 2{tbl} QD Take [address] -tezacaftor 0-26 tablets by Rizwana kes -ivacaft 00:00: mouth Medical 100-50-75 00 daily. Center mg(d) /150 mg (n) TbSQ cholecalcif 2021-02 Yes 1{capsu Take [address] jose, 0-25 le} capsule by [facility] vitamin D3, 12:47: mouth. Medi addi 2,000 unit 25 [place] Cap cyanocobala 2021-02 Yes 1000ug Take 1,[address] [facility] min 1000 0-25 mcg by [facility] MCG tablet 12:47: mouth. Medic al 25 [place] vitamin A 2021-02 Yes 8000U Take 8,[address] 8000 UNIT 0-25 Units by [facility] capsule 12:47: mouth. Medical 25 [place] VITAMIN B 2021-02 Yes Take by [facility] COMPLEX 0-25 mouth. [facility] ORAL 12:47: [address] cholecalcif 2021-02 Yes 1{capsu Take [address] jose, 0-25 le} capsule by [facility] vitamin D3, 12:47: mouth. Medi addi 2,000 unit 25 [place] Cap cyanocobala 2021-02 Yes 1000ug Take 1,[address] [facility] min 1000 0-25 mcg by [facility] MCG tablet 12:47: mouth. Medic al [address] [place] [address] vitamin A 2021-02 Yes 8000U Take 8,[address] 8000 UNIT 0-25 Units by [facility] capsule 12:47: mouth. [address] VITAMIN B 2021-02 Yes Take by [facility] COMPLEX 0-25 mouth. [facility] ORAL 12:47: [address] cholecalcif 2021-02 Yes 1{capsu Take [address] jose, 0-25 le} capsule by [facility] vitamin D3, 12:47: mouth. Medi addi 2,000 unit 25 [facility] cyanocobala 2021-02 Yes 1000ug Take 1,[address] min 1000 0-25 mcg by [facility]ukes MCG tablet 12:47: mouth. Medic al [address] [place] [address] vitamin A 2021-02 Yes 8000U Take 8,[address] 8000 UNIT 0-25 Units by [facility] capsule 12:47: mouth. [address] VITAMIN B 2021-02 Yes Take by [facility] t COMPLEX 0-25 mouth. [facility] ORAL 12:47: [address] meropenem 2021-02 Yes 2g Inject [address] (MERREM) 0-25 intravenou [facility] IVPB (CMPD) 00:00: sly every M edical 00 8 (eight) Center hours. elexacaftor 2021-02 Yes 1{tbl} Take [address] -tezacaftor 0-25 tablet by Carli es -ivacaft 00:00: mouth Medical 100-50-75 00 Daily Center mg(d) /150 (1800). mg (n) TbSQ meropenem 2021-02 Yes 2g Inject [address] (MERREM) 0-25 intravenou [facility] IVPB (CMPD) 00:00: sly every M edical 00 8 (eight) Center hours. elexacaftor 2021-02 Yes 1{tbl} Take [address] -tezacaftor 0-25 tablet by Carli es -ivacaft 00:00: mouth Medical 100-50-75 00 Daily Center mg(d) /150 (1800). mg (n) TbSQ meropenem 2021-02 Yes 2g Inject [address] (MERREM) 0-25 intravenou [facility] IVPB (CMPD) 00:00: sly every M edical 00 8 (eight) Center hours. elexacaftor 2021-02 Yes 1{tbl} Take [address] -tezacaftor 0-25 tablet by Carli es -ivacaft 00:00: mouth Medical 100-50-75 00 Daily Center mg(d) /150 (1800). mg (n) TbSQ meropenem 2021-02 Yes 2g Inject [address] (MERREM) 0-25 intravenou [facility] IVPB (CMPD) 00:00: sly every M edical 00 8 (eight) Center hours. elexacaftor 2021-02 Yes 1{tbl} Take [address] -tezacaftor 0-25 tablet by Carli es -ivacaft 00:00: mouth Medical 100-50-75 00 Daily Center mg(d) /150 (1800). mg (n) TbSQ insulin 2021-02- No 15U Inject [address] lispro 0-25 10-25 Units [facility] (HumaLOG) 00:00: 23:59 subcutaneo M edical 100 unit/mL 00 :00 [facility] 3 [place] In (three) times daily before meals. insulin 2021-02- No 15U Inject [address] [address] lispro 0-25 10-25 Units [facility] (HumaLOG) 00:00: 23:59 subcutaneo M edical 100 unit/mL 00 :00 [facility] 3 [place] In (three) times daily before meals. insulin 2021-02- No 15U Inject [address] lispro 0-25 10-25 Units [facility] (HumaLOG) 00:00: 23:59 subcutaneo M edical 100 unit/mL 00 :00 [facility] 3 [place] In (three) times daily before meals. insulin 2021-02- No 15U Inject [address] lispro 0-25 10-25 Units [facility] (HumaLOG) 00:00: 23:59 subcutaneo M edical 100 unit/mL 00 :00 usly 3 Center InPn (three) times daily before meals. insulin 2021-02- No 15U Q.5D Inject [address] glargine 0-25 01-23 Units [facility]ukes (LANTUS, 00:00: 23:59 subcutaneo Me dical SEMGLEE) 00 :00 usly 2 Center 100 unit/mL (two) (3 mL) InPn times daily for 90 days. insulin 2021-02- No 17U Inject [address] lispro 0-25 01-23 Units [facility] (HumaLOG) 00:00: 23:59 subcutaneo M edical 100 unit/mL 00 :00 usly 3 Center injection (three) times daily before meals for 90 days. insulin 2021-02- No 15U Q.5D Inject [address] glargine 0-25 01-23 Units [facility]ukes (LANTUS, 00:00: 23:59 subcutaneo Me dical SEMGLEE) 00 :00 usly 2 Center 100 unit/mL (two) (3 mL) InPn times daily for 90 days. insulin 2021-02- No 17U Inject [address] lispro 0-25 01-23 Units [facility] (HumaLOG) 00:00: 23:59 subcutaneo M edical 100 unit/mL 00 :00 usly 3 Center injection (three) times daily before meals for 90 days. insulin 2021-02- No 15U Q.5D Inject [address] glargine 0-25 01-23 Units [facility] (LANTUS, 00:00: 23:59 subcutaneo Me dical SEMGLEE) 00 :00 usly 2 Center 100 unit/mL (two) (3 mL) InPn times daily for 90 days. insulin 2021-02- No 17U Inject [address] lispro 0-25 01-23 Units [facility] (HumaLOG) 00:00: 23:59 subcutaneo M edical 100 unit/mL 00 :00 usly 3 Center injection (three) times daily before meals for 90 days. insulin 2021-02- No 15U Q.5D Inject [address] glargine 0-25 01-23 Units [facility] (LANTUS, 00:00: 23:59 subcutaneo Me dical SEMGLEE) 00 :00 usly 2 Center 100 unit/mL (two) (3 mL) InPn times daily for 90 days. insulin 2021-02- No 17U Inject [address] [address] lispro 0-25 01-23 Units [facility] (HumaLOG) 00:00: 23:59 subcutaneo M edical 100 unit/mL 00 :00 usly 3 Center injection (three) times daily before meals for 90 days. insulin 2021-02- No 17U Inject [address] [address] lispro 0-25 10-25 Units [facility] (HumaLOG) 00:00: 00:00 subcutaneo M edical 100 unit/mL 00 :00 usly 3 Center injection (three) times daily before meals. insulin 2021-02- No 15U Q.5D Inject [address] glargine 0-25 10-25 Units [facility] (LANTUS, 00:00: 00:00 subcutaneo Me dical SEMGLEE) 00 :00 usly 2 Center 100 unit/mL (two) (3 mL) InPn times daily. insulin 2021-02- No 17U Inject [address] lispro 0-25 10-25 Units [facility] (HumaLOG) 00:00: 00:00 subcutaneo M edical 100 unit/mL 00 :00 usly 3 Center injection (three) times daily before meals. insulin 2021-02- No 15U Q.5D Inject [address] glargine 0-25 10-25 Units [facility] (LANTUS, 00:00: 00:00 subcutaneo Me dical SEMGLEE) 00 :00 usly 2 Center 100 unit/mL (two) (3 mL) InPn times daily. insulin 2021-02- No 17U Inject [address] lispro 0-25 10-25 Units [facility] (HumaLOG) 00:00: 00:00 subcutaneo M edical 100 unit/mL 00 :00 usly 3 Center injection (three) times daily before meals. insulin 2021-02- No 15U Q.5D Inject [address] glargine 0-25 10-25 Units [facility] (LANTUS, 00:00: 00:00 subcutaneo Me dical SEMGLEE) 00 :00 usly 2 Center 100 unit/mL (two) (3 mL) InPn times daily. insulin 2021-02 No 17U Inject [address] lispro 0-25 10-25 Units [facility] (HumaLOG) 00:00: 00:00 subcutaneo M edical 100 unit/mL 00 :00 usly 3 Center injection (three) times daily before meals. insulin 2021-02- No 15U Q.5D Inject [address] glargine 0-25 10-25 Units [facility] (LANTUS, 00:00: 00:00 subcutaneo Me dical SEMGLEE) 00 :00 usly 2 Center 100 unit/mL (two) (3 mL) InPn times daily. cholecalcif 2021-02 Yes 1{capsu Take [address] jose, 0-20 le} capsule by [employer] vitamin D3, 14:41: mouth. Medi addi 2,000 unit 53 [place] Cap cyanocobala 2021-02 Yes 1000ug Take 1,[address] min 1000 0-20 mcg by [facility]ukes MCG tablet 14:41: mouth. Medic al [address] [place] [address] vitamin A 2021-02 Yes 8000U Take 8,[address] 8000 UNIT 0-20 Units by [facility] capsule 14:41: mouth. [address] VITAMIN B 2021-02 Yes Take by [facility] COMPLEX 0-20 mouth. [facility] ORAL 14:41: [address] Cholecalcif Yes [id number] 1{capsu Take 1 [facility] jose 3-04 le} capsule by [place] (VITAMIN D) 19:01: mouth two o f 2000 UNITS 52 times Medicin CAPS daily. e vitamin A Yes [id number] 8000U Take 8,000 [facility] 8000 UNITS 3-04 Units by Colle ge capsule 19:01: mouth of 52 daily. Medicin e Cyanocobala Yes 1000ug Take 1,000 [facility] min 3-04 mcg by [place] (VITAMIN 19:01: mouth of B-12) 1000 52 daily. Medicin MCG TABS e Tobramycin Yes [id number] Inhale 1 [facility] (BETHKIS) 2-27 ampule by [facility] ge 300 MG/4ML 00:00: inhalation o f NEBU 00 two times Medicin daily. e Alternate 28 days on, 28 days off. Elexacaf-Te Yes [id number] Take 2 [facility] zacaf-Ivaca 2-13 tablets by Co llege f&Ivacaf 00:00: mouth of (TRIKAFTA) 00 every Medicin 100-50-75 & morning e 150 MG TBPK AND 1 tablet at bedtime. Take doses 12 hours apart with fatty meals. insulin Yes [id number] 50-60 [facility] aspart 2-07 units per College (NOVOLOG) 00:00: day to use of 100 UNIT/ML 00 with Medicin injection insulin e pump alendronate Yes [id number] 70mg Take 1 Tab [facility] (FOSAMAX) 1-02 by mouth Colleg e 70 MG 00:00: every 7 of tablet 00 days. Medicin e Nebulizers 2018-02 Yes [id number] Use as [facility] (SANDIE LC 2-31 directed College PLUS 00:00: of NEBULIZER) 00 Medicin MISC e Glucose 2018-02 Yes [id number] Check [facility] or Blood 2-12 glucose 6x [place] Strips 00:00: daily; Dx of (CONTOUR 00 84.9 Medicin NEXT TEST) e pantoprazol Yes [id number] TAKE 1 [facility] e 9-20 TABLET BY [place] (PROTONIX) 00:00: MOUTH of 40 MG 00 EVERY DAY Medicin tablet e fluticasone Yes [id number] 2{spray 2 Sprays [facility] (FLONASE) 9-20 } by Each College 50 MCG/ACT 00:00: Nostril of nasal spray 00 route Medicin daily. e albuterol Yes [id number] 180ug Inhale 2-4 [facility] 108 (90 9-20 Puffs by [place] base) 00:00: mouth 3 of mcg/act 00 times Medicin inhaler daily. e Pancrelipas Yes Take 3-4 Ba ylor e, 9-20 capsules College Lip-Prot-Am 00:00: with meals of yl, (CREON) 00 (3) and 3 Med icin [id number] with e units CPEP snacks (3). Approx 21 per day. cyproheptad Yes [id number] 4mg Take 1 Tab [facility] ine 9-20 by mouth [place] (PERIACTIN) 00:00: daily. of 4 MG tablet 00 Medicin e sodium Yes [id number] 4mL Take 1 [facility] chloride, 9-20 Ampule by [facility] Inhalant, 00:00: nebulizati of (HYPERSAL) 00 on two Medicin 7 % times e nebulizer daily. solution albuterol Yes [id number] USE 1 VIAL [facility] (PROVENTIL) 9-20 IN [place] (2.5 mg/3 00:00: NEBULIZER of mL) 0.083% 00 THREE Medicin nebulizer TIMES e solution DAILY azithromyci Yes [id number] TAKE 1 [facility] n 4-29 TABLET BY [place] (ZITHROMAX) 00:00: MOUTH of 500 MG 00 THREE Medicin tablet TIMES A e WEEK Continuous Yes [id number] 1{each} 1 Each [facility] Blood Gluc 2-04 every 10 [facility] Sensor 00:00: days. of (FREESTYLE 00 Medicin JARED e SENSOR SYSTEM) [place] [id number] 2017-[address] mg/mL Nebu 1-14 [facility] nebulizer 00:00: Medical solution 00 [place] [address] 2017-[address] mg/mL Nebu 1-14 [facility] nebulizer 00:00: Medical solution [place] [address] 2017-[address] mg/mL Nebu 1-14 [facility] nebulizer 00:00: Medical solution [place] [address] 2017-[address] mg/mL Nebu 1-14 [facility] nebulizer 00:00: Medical solution 00 [place] [address] 2017-[address] mg/mL Nebu 1-14 [facility] nebulizer 00:00: Medical solution 00 [place] Continuous Yes [id number] 1{devic 1 Device [facility] Blood Gluc 7-23 e} daily. College Electrical Supervisor 00:00: of (FREESTYLE 00 Medicin JARED e READER) CODY dornase Yes INHALE [facility] alpha 6-18 CONTENTS [facility] (PULMOZYME) 00:00: OF 1 AMP Me dical 1 mg/mL 00 (2.5MG) Center nebulizer VIA solution NEBULIZER DAILY DIRECTED. KEEP REFRIGERAT ED. dornase Yes INHALE [facility] alpha 6-18 CONTENTS [facility] (PULMOZYME) 00:00: OF 1 AMP Me dical 1 mg/mL 00 (2.5MG) Center nebulizer VIA solution NEBULIZER DAILY DIRECTED. KEEP REFRIGERAT ED. dornase Yes INHALE [facility] alpha 6-18 CONTENTS [facility] (PULMOZYME) 00:00: OF 1 AMP Me dical 1 mg/mL 00 (2.5MG) Center nebulizer VIA solution NEBULIZER DAILY DIRECTED. KEEP REFRIGERAT ED. dornase Yes INHALE [facility] alpha 6-18 CONTENTS [facility] (PULMOZYME) 00:00: OF 1 AMP Me dical 1 mg/mL 00 (2.5MG) Center nebulizer VIA solution NEBULIZER DAILY DIRECTED. KEEP REFRIGERAT ED. dornase Yes [id number] INHALE [facility] alpha 6-18 CONTENTS College (PULMOZYME) 00:00: OF 1 AMP of 1 MG/ML 00 (2.5MG) Medicin nebulizer VIA e solution NEBULIZER DAILY DIRECTED. KEEP REFRIGERAT ED. dornase Yes INHALE [facility] alpha 6-18 CONTENTS [facility] (PULMOZYME) 00:00: OF 1 AMP Me dical 1 mg/mL 00 (2.5MG) Center nebulizer VIA solution NEBULIZER DAILY DIRECTED. KEEP REFRIGERAT ED. azithromyci Yes 500mg Take [address] n 4-17 mg by [facility] (ZITHROMAX) 00:00: mouth. Medi addi 500 MG 00 Center tablet fluticasone Yes 2{spray [address] [facility] (FLONASE) 4-17 } by Nasal [facility] 50 00:00: route. Medical mcg/actuati 00 Center on nasal spray fluticasone Yes 2{spray [address] [facility] (FLONASE) 4-17 } by Nasal [facility] 50 00:00: route. Medical mcg/actuati 00 Center on nasal spray fluticasone Yes 2{spray [address] (FLONASE) 4-17 } by Nasal [facility] 50 00:00: route. Medical mcg/actuati 00 Center on nasal spray fluticasone Yes 2{spray [address] (FLONASE) 4-17 } by Nasal [facility] 50 00:00: route. Medical mcg/actuati 00 Center on nasal spray fluticasone Yes 2{spray [address] (FLONASE) 4-17 } by Nasal [facility] 50 00:00: route. Medical mcg/actuati 00 Center on nasal spray azithromyci 2021- No 500mg Take [address] n 4-17 10-25 mg by [facility] (ZITHROMAX) 00:00: 00:00 mouth. Med ical 500 MG 00 :00 Center tablet azithromyci 2017-2021- No 500mg Take [address] n 4-17 10-25 mg by [facility] (ZITHROMAX) 00:00: 00:00 mouth. Med ical 500 MG 00 :00 Center tablet azithromyci 2021- No 500mg Take [address] n 4-17 10-25 mg by [facility]ukes (ZITHROMAX) 00:00: 00:00 mouth. Med ical 500 MG 00 :00 Center tablet azithromyci 2017-2021- No 500mg Take [address] n 4-17 10-25 mg by [facility] (ZITHROMAX) 00:00: 00:00 mouth. Med ical 500 MG 00 :00 Center tablet Glucagon, Yes [id number] Patient to [facility] rDNA, 1 MG 4-16 inject for Col lege KIT 00:00: severe of 00 hypoglycem Medicin ia. Use as e directed. One for home use and one for school use. lumacaftor- 2016-02 Yes 2{capsu Take [address] ivacaftor 1-21 le} [facility] (ORK[facility]BI[facility]: by mouth. Med ical 200-125 mg 00 Center Tab lumacaftor- 2016-02- No 2{capsu Take [address] [facility] ivacaftor 1-21 10-25 le} [facility] (ORKAMBI) 00:00: 00:00 by mouth. Me dical 200-125 mg 00 :00 Center Tab lumacaftor- 2016-02- No 2{capsu Take [address] [facility] ivacaftor 1-21 10-25 le} [facility] (ORKAMBI) 00:00: 00:00 by mouth. Me dical 200-125 mg 00 :00 [facility] lumacaftor- 2016-02- No 2{capsu Take [address] [facility] ivacaftor 1-21 10-25 le} capsules [facility] (ORKAMBI) 00:00: 00:00 by mouth. Me dical 200-125 mg 00 :00 [facility] lumacaftor- 2016-02- No 2{capsu Take [address] [facility] [address] ivacaftor 1-21 10-25 le} [facility] (ORKAMBI) 00:00: 00:00 by mouth. Me dical 200-125 mg 00 :00 [facility] pancrelipas Yes TAKE 3-[address] [facility], 6-12 CAPSULES [facility] Lip-Prot-Am 00:00: BY MOUTH Me dical yl, (CREON) 00 WITH EVERY Ce nter 24,000-76,0 MEAL AND 3 00 -120,000 CAPSULE unit CpDR WITH capsule SNACKS. APPROXIMAT AIDAN 22 CAPSULES A DAY pancrelipas Yes TAKE 3-[address] [facility], 6-12 CAPSULES [facility] Lip-Prot-Am 00:00: BY MOUTH Me dical yl, (CREON) 00 WITH EVERY Ce nter 24,000-76,0 MEAL AND 3 00 -120,000 CAPSULE unit CpDR WITH capsule SNACKS. APPROXIMAT AIDAN 22 CAPSULES A DAY pancrelipas Yes TAKE 3-[address] [facility], 6-12 CAPSULES [facility] Lip-Prot-Am 00:00: BY MOUTH Me dical yl, (CREON) 00 WITH EVERY Ce nter 24,000-76,0 MEAL AND 3 00 -120,000 CAPSULE unit CpDR WITH capsule SNACKS. APPROXIMAT AIDAN 22 CAPSULES A DAY pancrelipas Yes TAKE 3-[address] [facility], 6-12 CAPSULES [facility] Lip-Prot-Am 00:00: BY MOUTH Me dical yl, (CREON) 00 WITH EVERY Ce nter 24,000-76,0 MEAL AND 3 00 -120,000 CAPSULE unit CpDR WITH capsule SNACKS. APPROXIMAT AIDAN 22 CAPSULES A DAY pancrelipas Yes TAKE 3-[address] [facility], 6-12 CAPSULES [facility] Lip-Prot-Am 00:00: BY MOUTH Me dical yl, (CREON) 00 WITH EVERY Ce nter 24,000-76,0 MEAL AND 3 00 -120,000 CAPSULE unit CpDR WITH capsule SNACKS. APPROXIMAT AIDAN 22 CAPSULES A DAY albuterol Yes 360ug Inhale [address] HFA 5-30 mcg by [facility] (VENTOLIN 00:00: mouth via Med ical HFA) 90 00 inhaler. Center mcg/actuati on inhaler albuterol Yes 360ug Inhale [address] HFA 5-30 mcg by [facility] (VENTOLIN 00:00: mouth via Med ical HFA) 90 00 inhaler. Center mcg/actuati on inhaler albuterol Yes 360ug Inhale [address] HFA 5-30 mcg by [facility] (VENTOLIN 00:00: mouth via Med ical HFA) 90 00 inhaler. Center mcg/actuati on inhaler albuterol Yes 360ug Inhale [address] HFA 5-30 mcg by [facility] (VENTOLIN 00:00: mouth via Med ical HFA) 90 00 inhaler. Center mcg/actuati on inhaler albuterol Yes 360ug Inhale [address] HFA 5-30 mcg by [facility] (VENTOLIN 00:00: mouth via Med ical HFA) 90 00 inhaler. Center mcg/actuati on inhaler tobramycin Yes [facility] (LEILANI 5-19 CONTENTS [facility] PODHALER) 00:00: OF 4 Medical 28 mg CpDv 00 CAPSULES Cente r (112MG) VIA PODHALER TWICE DAILY FOR 28DAYS ON, THEN 28 DAYS OFF. STORE AT ROOM TEMPERATUR E. PROTECT FROM DANNIELLE tobramycin Yes [facility]ALE [facility] (LEILANI 5-19 [facility]ENTS [facility] PODHALER) 00:00: OF 4 Medical 28 mg CpDv 00 CAPSULES Cente r (112MG) VIA PODHALER TWICE DAILY FOR 28DAYS ON, THEN 28 DAYS OFF. STORE AT ROOM TEMPERATUR E. PROTECT FROM DANNIELLE tobramycin Yes [facility]ALE [facility] (LEILANI 5-19 CONTENTS [facility] PODHALER) 00:00: OF 4 Medical 28 mg CpDv 00 CAPSULES Cente r (112MG) VIA PODHALER TWICE DAILY FOR 28DAYS ON, THEN 28 DAYS OFF. STORE AT ROOM TEMPERATUR E. PROTECT FROM DANNIELLE tobramycin Yes [facility]HALE [facility] (LEILANI 5-19 CONTENTS [facility] PODHALER) 00:00: OF 4 Medical 28 mg CpDv 00 CAPSULES Cente r (112MG) VIA PODHALER TWICE DAILY FOR 28DAYS ON, THEN 28 DAYS OFF. STORE AT ROOM TEMPERATUR E. PROTECT FROM DANNIELLE tobramycin Yes INHALE [facility] (LEILANI 5-19 CONTENTS [facility] PODHALER) 00:00: OF 4 Medical 28 mg CpDv 00 CAPSULES Cente r (112MG) VIA PODHALER TWICE DAILY FOR 28DAYS ON, THEN 28 DAYS OFF. STORE AT ROOM TEMPERATUR E. PROTECT FROM DANNIELLE sodium Yes 4mL Inhale [address] [facility] chloride, 5-15 mLs by [facility] hypertonic, 00:00: mouth via M edical (HYPER-DOMINIQUE) 00 inhaler. Cent er 7 % nebulizer solution sodium Yes 4mL Inhale [address] [facility] [address] chloride, 5-15 mLs by [facility] hypertonic, 00:00: mouth via M edical (HYPER-DOMINIQUE) 00 inhaler. Cent er 7 % nebulizer solution sodium Yes 4mL Inhale [address] [facility] chloride, 5-15 mLs by [facility] hypertonic, 00:00: mouth via M edical (HYPER-DOMINIQUE) 00 inhaler. Cent er 7 % nebulizer solution sodium Yes 4mL Inhale [address] [facility] chloride, 5-15 mLs by [facility] hypertonic, 00:00: mouth via M edical (HYPER-DOMINIQUE) 00 inhaler. Cent er 7 % nebulizer solution sodium Yes 4mL Inhale [address] [facility] chloride, 5-15 mLs by [facility] hypertonic, 00:00: mouth via M edical (HYPER-DOMINIQUE) 00 inhaler. Cent er 7 % nebulizer solution insulin Yes 50-[address] [facility] aspart 5-10 units per [facility] U-100 00:00: day to use Medica l (NOVOLOG) 00 with Center 100 unit/mL insulin injection pump insulin 2021- No 50-[address] aspart 5-10 10-25 units per [facility] U-100 00:00: 00:00 day to use Medic al (NOVOLOG) 00 :00 with Center 100 unit/mL insulin injection pump insulin 2021- No 50-[address] aspart 5-10 10-25 units per [facility] U-100 00:00: 00:00 day to use Medic al (NOVOLOG) 00 :00 with Center 100 unit/mL insulin injection pump insulin 2021- No 50-[address] aspart 5-10 10-25 units per [facility] U-100 00:00: 00:00 day to use Medic al (NOVOLOG) 00 :00 with Center 100 unit/mL insulin injection pump insulin 2021- No 50-[address] aspart 5-10 10-25 units per [facility] U-100 00:00: 00:00 day to use Medic al (NOVOLOG) 00 :00 with Center 100 unit/mL insulin injection pump cyproheptad Yes TAKE [address] [facility] ine 2-02 TABLET BY [facility] (PERIACTIN) 00:00: MOUTH Medic al 4 mg tablet 00 DAILY Center cyproheptad Yes TAKE [address] [facility] ine 2-02 TABLET BY [facility] (PERIACTIN) 00:00: MOUTH Medic al 4 mg tablet 00 DAILY Center cyproheptad Yes TAKE [address] [facility] [address] ine 2-02 TABLET BY [facility] (PERIACTIN) 00:00: MOUTH Medic al 4 mg tablet 00 DAILY Center cyproheptad Yes TAKE [address] [facility] ine 2-02 TABLET BY [facility] (PERIACTIN) 00:00: MOUTH Medic al 4 mg tablet 00 DAILY Center cyproheptad Yes TAKE [address] [facility] ine 2-02 TABLET BY [facility] (PERIACTIN) 00:00: MOUTH Medic al 4 mg tablet 00 DAILY Center pantoprazol Yes TAKE [address] [facility] e 6-02 TABLET BY [facility] (PROTONIX) 00:00: MOUTH Medica l 40 MG 00 EVERY DAY Center tablet pantoprazol Yes TAKE [address] [facility] e 6-02 TABLET BY [facility] (PROTONIX) 00:00: MOUTH Medica l 40 MG 00 EVERY DAY Center tablet pantoprazol Yes TAKE [address] [facility] e 6-02 TABLET BY [facility] (PROTONIX) 00:00: MOUTH Medica l 40 MG 00 EVERY DAY Center tablet pantoprazol Yes TAKE [address] [facility] e 6-02 TABLET BY [facility] (PROTONIX) 00:00: MOUTH Medica l 40 MG 00 EVERY DAY Center tablet pantoprazol Yes TAKE [address] [facility] e 6-02 TABLET BY [facility] (PROTONIX) 00:00: MOUTH Medica l 40 MG 00 EVERY DAY Center tablet cetirizine Yes 10mg Take [address] (ZYRTEC) 10 2-11 by mouth. Carli es MG tablet 00:00: Medical 00 Gormania cetirizine Yes 10mg Take [address] (ZYRTEC) 10 2-11 by mouth. Carli es MG tablet 00:00: Medical 00 [place] cetirizine Yes 10mg Take [address] (ZYRTEC) 10 2-11 by mouth. Carli es MG tablet 00:00: Medical 00 [place] cetirizine Yes 10mg Take [address] (ZYRTEC) 10 2-11 by mouth. Carli es MG tablet 00:00: Medical 00 [place] cetirizine Yes 10mg Take [address] (ZYRTEC) 10 2-11 by mouth. Carli es MG tablet 00:00: Medical 00 Gorm[place] cetirizine, Yes 10mg Take 10 mg [facility] ZYRTEC, 10 2-11 by mouth Colle ge MG tablet 00:00: daily. of 00 Medicin e lactobacill Yes 10mg QD Take [address] [facility] combo 8-15 by mouth [facility] no.10 00:00: daily. Medical (LACTOBACIL Center CHAGO COMB NO.10 ORAL) lactobacill Yes 10mg QD Take [address] [facility] combo 8-15 by mouth [facility] no.10 00:00: daily. Medical (LACTOBACIL 00 Center CHAGO COMB NO.10 ORAL) lactobacill Yes 10mg QD Take [address] [facility] combo 8-15 by mouth [facility] no.10 00:00: daily. Medical (LACTOBACIL Center CHAGO COMB NO.10 ORAL) lactobacill Yes 10mg QD Take [address] [facility] combo 8-15 by mouth [facility] no.10 00:00: daily. Medical (LACTOBACIL 00 Center CHAGO COMB NO.10 ORAL) lactobacill Yes 10mg QD Take [address] [facility] us combo 8-15 by mouth [facility] no.10 00:00: daily. Medical (LACTOBACIL 00 Center CHAGO COMB NO.10 ORAL) Lactobacill Yes 10mg Take 10 mg [facility] us 8-15 by mouth College (ACIDOPHILU 00:00: daily. of S 00 Medicin PROBIOTIC) e TABS Immunizations Ordered Immunization Filled Immunization Date Status Commen ts Source Name Name Influenza Quad-PF 2018-12-31 Completed [facility] 00:00:00 of Medicine Influenza Quad-PF 2017-12-03 Completed [facility] 00:00:00 of Medicine Influenza 2015-12-21 Completed [facility] Quadrivalent 3YRS+ 00:00:00 of Med icine Influenza 2014-11-29 Completed [facility] Quadrivalent 3YRS+ 00:00:00 of Med icine Influenza whole 2010-12-05 Completed [facility] 00:00:00 of Medicine Influenza 2009-11-10 Completed [facility] Quadrivalent 3YRS+ 00:00:00 of Med icine Swine Flu (H1N1) 2009-01-20 Completed [facility] 00:00:00 of Medicine Vital Signs Vital Name Observation Time Observation Value Comments Source WEIGHT 2021-12-19 17:00:00 49.306 kg WEIGHT 2021-12-17 18:00:00 48.444 kg HEIGHT 2021-12-15 21:24:00 162.6 cm WEIGHT 2021-12-15 21:24:00 44.861 kg WEIGHT 2021-12-19 17:00:00 49.306 kg WEIGHT 2021-12-17 18:00:00 48.444 kg HEIGHT 2021-12-15 21:24:00 162.6 cm WEIGHT 2021-12-15 21:24:00 44.861 kg WEIGHT 2021-12-19 17:00:00 49.306 kg WEIGHT 2021-12-17 18:00:00 48.444 kg HEIGHT 2021-12-15 21:24:00 162.6 cm WEIGHT 2021-12-15 21:24:00 44.861 kg Systolic blood 2019-04-30 19:01:00 122 mm[Hg] [facility] Medicine Diastolic blood 2019-04-30 19:01:00 80 mm[Hg] [facility] Medicine Heart rate 2019-04-30 19:01:00 85 /min [facility] Body height 2019-04-30 19:01:00 160 cm [facility] Body weight 2019-04-30 19:01:00 53.978 kg [facility] BMI 2019-04-30 19:01:00 21.08 kg/m2 [facility] Heart rate 2021-12-20 11:53:00 52 /min [facility] Respiratory rate 2021-12-20 11:53:00 18 /min [facility] Oxygen saturation in 2021-12-20 11:53:00 97 /min [facility] Arterial blood by Medical Ce nter Pulse oximetry Systolic blood 2021-12-20 11:00:00 111 mm[Hg] [facility] Diastolic blood 2021-12-20 11:00:00 62 mm[Hg] [facility] Body temperature 2021-12-20 11:00:00 36.5 Hilda [facility] Body weight 2021-12-19 17:00:00 49.306 kg [facility] BMI 2021-12-19 17:00:00 18.66 kg/m2 [facility] Systolic blood 2021-12-19 12:05:00 104 mm[Hg] [facility] Diastolic blood 2021-12-19 12:05:00 65 mm[Hg] [facility] Heart rate 2021-12-19 12:05:00 94 /min [facility] Body temperature 2021-12-19 12:05:00 35.67 Hilda [facility] Respiratory rate 2021-12-19 12:05:00 18 /min [facility] Oxygen saturation in 2021-12-19 12:05:00 96 /min [facility] Arterial blood by Medical Ce nter Pulse oximetry Body weight 2021-12-17 18:00:00 48.444 kg [facility] BMI 2021-12-17 18:00:00 18.33 kg/m2 [facility] Body height 2021-12-15 21:24:00 162.6 cm [facility] Procedures Procedure Date / Time Performing Clinician Source Performed DE DEMO \\T\\/OR EVAL,PT 2021-12-26 17:12:16 [facility],AEROSOL DEVICE Medicine CF RESPIRATORY CULTURE 2021-12-26 16:00:00 Neo Clark [facility] AFB CULTURE + SMEAR 2021-12-26 16:00:00 [facility] (SPUTUM ONLY) [facility] FUNGUS CULTURE + SMEAR 2021-12-26 16:00:00 [facility] SPIN/CONCENTRATION CHARGE 2021-12-26 16:00:00 [facility] ACID FAST CULTURE 2021-12-26 15:55:26 [facility] CULTURE, RESPIRATORY, 2021-12-26 15:55:26 [facility] CYSTIC FIBROSIS Medicine FUNGAL CULTURE 2021-12-26 15:55:26 [facility] HEPATIC FUNCTION PANEL 2021-12-26 10:48:00 [facility] SPIROMETRY (IN CLINIC) 2021-12-26 00:00:00 [facility] BEDSIDE SPIROMETRY 2021-12-20 11:53:00 Fauzia Gant [facility] POCT-GLUCOSE METER 2021-12-20 11:46:00 Santana Gannon [facility] POCT-GLUCOSE METER 2021-12-20 07:04:00 Merchant Santana [facility] BASIC METABOLIC PANEL 2021-12-20 04:14:00 Merchant Santana [facility] HEPATIC FUNCTION PANEL 2021-12-20 04:14:00 Brad Eaton [facility] POCT-GLUCOSE METER 2021-12-19 21:43:00 Merchant Santana [facility] TOBRAMYCIN LEVEL, RANDOM 2021-12-19 21:14:00 Moose Farnsworth [facility] POCT-GLUCOSE METER 2021-12-19 17:38:00 Merchant, [facility] POCT-GLUCOSE METER 2021-12-19 12:43:00 Torihant, [facility] POCT-GLUCOSE METER 2021-12-19 08:43:00 Merchant, [facility] CBC W/PLT COUNT & AUTO 2021-12-19 06:43:00 ThimmapuramRambomi C [facility] CBC W/PLT COUNT & AUTO 2021-12-19 06:43:00 Thimmapuram, Eliana C [facility] BASIC METABOLIC PANEL 2021-12-19 06:43:00 Torihant, [facility] [place] HEPATIC FUNCTION PANEL 2021-12-19 06:43:00 Brad Eaton [facility] POCT-GLUCOSE METER 2021-12-18 21:32:00 Merchant, [facility] POCT-GLUCOSE METER 2021-12-18 18:01:00 Torihant, [facility] POCT-GLUCOSE METER 2021-12-18 12:44:00 Merchant, [facility] POCT-GLUCOSE METER 2021-12-18 07:28:00 [facility] CBC W/PLT COUNT & AUTO 2021-12-18 06:05:00 Thimmapuram Eliana C [facility] BASIC METABOLIC PANEL 2021-12-18 06:05:00 Thimmapuram, Eliana [facility] CBC W/PLT COUNT & AUTO 2021-12-18 06:05:00 Thimmapuram, Eliana C HI [facility] POCT-GLUCOSE METER 2021-12-17 20:58:00 Merchant, [facility] POCT-GLUCOSE METER 2021-12-17 16:52:00 Merchant, [facility] POCT-GLUCOSE METER 2021-12-17 12:06:00 Yarielt, [facility] XR CHEST 1 VIEW PORTABLE 2021-12-17 10:25:00 Yarielt, [facility] POCT-GLUCOSE METER 2021-12-17 07:05:00 Yarielt, [facility] POCT-GLUCOSE METER 2021-12-17 05:32:00 Torihant, [facility] CBC W/PLT COUNT & AUTO 2021-12-17 02:55:00 Thimmapuram, Eliana C HI [facility] BASIC METABOLIC PANEL 2021-12-17 02:55:00 Thimmapuram, Eliana CH I [facility] CBC W/PLT COUNT & AUTO 2021-12-17 02:55:00 Thimmapuram, Eliana C [facility] TOBRAMYCIN LEVEL, RANDOM 2021-12-16 22:29:00 Fauzia Gant [facility] POCT-GLUCOSE METER 2021-12-16 21:33:00 Merchant, [facility] POCT-GLUCOSE METER 2021-12-16 17:56:00 Merchant, [facility] POCT-GLUCOSE METER 2021-12-16 17:19:00 [facility] POCT-GLUCOSE METER 2021-12-16 13:04:00 Merchant, [facility] POCT-GLUCOSE METER 2021-12-16 07:17:00 Merchant, [facility] POCT-GLUCOSE METER 2021-12-16 00:01:00 Merchant, [facility] POCT-GLUCOSE METER 2021-12-15 19:46:00 [facility] POCT-GLUCOSE METER 2021-12-15 16:37:00 [facility] POCT-GLUCOSE METER 2021-12-15 15:28:00 [facility] POCT-GLUCOSE METER 2021-12-15 11:11:00 [facility] POCT-GLUCOSE METER 2021-12-15 07:15:00 [facility] POCT-GLUCOSE METER 2021-12-15 04:56:00 [facility] POCT-GLUCOSE METER 2021-12-14 22:32:00 [facility] POCT-GLUCOSE METER 2021-12-14 17:31:00 [facility] POCT-GLUCOSE METER 2021-12-14 15:49:00 [facility] POCT-GLUCOSE METER 2021-12-14 15:27:00 [facility] POCT-GLUCOSE METER 2021-12-14 13:38:00 [facility] POCT-GLUCOSE METER 2021-12-14 11:17:00 [facility] POCT-GLUCOSE METER 2021-12-14 07:41:00 [facility] POCT-GLUCOSE METER 2021-12-13 21:39:00 [facility] SARS-COV2/INFLUENZA/RSV 2021-12-13 18:30:00 Rk Chris [facility] RT-PCR [facility] XR CHEST 2 VIEWS 2021-12-13 13:50:00 Perry Shen [facility] PERMANENT LAB REPORT - 2021-12-13 00:00:00 Provider, Default [facility] SCAN Scanning [facility] CULTURE, RESPIRATORY, 2021-12-12 12:04:24 [facility] CYSTIC FIBROSIS Medicine FUNGAL CULTURE 2021-12-12 12:04:24 [facility] ACID FAST CULTURE 2021-12-12 12:04:24 [facility]ACCINE QUAD 2021-12-12 11:46:09 [facility] Justina ege of PRESERVATIVE FREE IM Medicine CBC W/AUTO DIFF WITH 2021-12-12 11:45:00 [facility] COMPREHENSIVE METABOLIC 2021-12-12 11:45:00 [facility] PROTIME-INR 2021-12-12 11:45:00 [facility] VITAMIN A 2021-12-12 11:45:00 [facility] VITAMIN D 25 HYDROXY 2021-12-12 11:45:00 [facility] VITAMIN E 2021-12-12 11:45:00 [facility] TESTOSTERONE 2021-12-12 11:45:00 [facility] HEMOGLOBIN A1C 2021-12-12 11:45:00 [facility] LIPID PANEL 2021-12-12 11:45:00 [facility] IGE 2021-12-12 11:45:00 [facility] TSH 2021-12-12 11:45:00 [facility] SPIROMETRY (IN CLINIC) 2021-12-12 00:00:00 [facility] POCT HEMOGLOBIN A1C 2019-04-30 19:22:00 Gus Ackerman [facility] jaxon [facility] POCT REAGENT STP/BLD 2019-04-30 19:05:00 Gus Ackerman [facility] Plan of Care Planned Activity Planned Date Details Comments Source Future Scheduled 2022-02-[address] [facility] Test 00:00:00 (12+) [code = Medical Center DEPRESSION SCREENING (12+)] Future Scheduled 2021-10-[address] [facility] Test 00:00:00 (#1) [code = Medical Center INFLUENZA VACCINE (#1)] Future Scheduled 2021-10-[address] [facility] Test 00:00:00 (#1) [code = [facility] INFLUENZA VACCINE (#1)] Future Scheduled 2021-02-[address] [facility] Test 00:00:00 (12+) [code = Medical Center DEPRESSION SCREENING (12+)] Future Scheduled 2021-02-[address] [facility] Test 00:00:00 (12+) [code = Medical Center DEPRESSION SCREENING (12+)] Future Scheduled 2021-02-[address] [facility] Test 00:00:00 (12+) [code = Medical Center DEPRESSION SCREENING (12+)] Future Scheduled 2021-02-[address] [facility] Test 00:00:00 (12+) [code = Medical Center DEPRESSION SCREENING (12+)] Future Scheduled 2020-11-05 COVID-19 VACCINE ([address] [facility] Test 00:00:00 - Booster for Pfizer Medical Center series) [code = COVID-19 VACCINE (3 - Booster for Pfizer series)] Future Scheduled 2020-11-05 COVID-19 VACCINE ([address] [facility] Test 00:00:00 - Booster for Pfizer Medical Center series) [code = COVID-19 VACCINE (3 - Booster for Pfizer series)] Future Scheduled 2020-11-05 COVID-19 VACCINE ([address] [facility] Test 00:00:00 - Booster for Pfizer Medical Center series) [code = COVID-19 VACCINE (3 - Booster for Pfizer series)] Future Scheduled 2020-11-05 COVID-19 VACCINE ([address] [facility] Test 00:00:00 - Booster for Pfizer Medical Center series) [code = COVID-19 VACCINE (3 - Booster for Pfizer series)] Future Scheduled 2020-11-05 COVID-19 VACCINE ([address] [facility] Test 00:00:00 - Booster for Pfizer Medical Center series) [code = COVID-19 VACCINE (3 - Booster for Pfizer series)] Future Scheduled 2015-02-28 DTAP/TDAP/TD [facility] VACCINES (1 - Tdap) Medical Center [code = DTAP/TDAP/TD VACCINES (1 - Tdap)] Future Scheduled 2015-02-28 DTAP/TDAP/TD [facility] 00:00:00 VACCINES (1 - Tdap) Medical Center [code = DTAP/TDAP/TD VACCINES (1 - Tdap)] Future Scheduled 2015-02-28 DTAP/TDAP/TD [facility] 00:00:00 VACCINES (1 - Tdap) Medical Center [code = DTAP/TDAP/TD VACCINES (1 - Tdap)] Future Scheduled 2015-02-28 DTAP/TDAP/TD [facility] 00:00:00 VACCINES (1 - Tdap) Medical Center [code = DTAP/TDAP/TD VACCINES (1 - Tdap)] Future Scheduled 2015-02-28 DTAP/TDAP/TD [facility] 00:00:00 VACCINES (1 - Tdap) Medical Center [code = DTAP/TDAP/TD VACCINES (1 - Tdap)] Future Scheduled 2014-02-[address] [facility] 00:00:00 SCREENING [code = Medical Ce nter HEPATITIS C SCREENING] Future Scheduled 2014-02-[address] [facility] 00:00:00 SCREENING [code = Medical Ce nter HEPATITIS C SCREENING] Future Scheduled 2014-02-[address] [facility] 00:00:00 SCREENING [code = Medical Ce nter HEPATITIS C SCREENING] Future Scheduled 2014-02-[address] [facility] 00:00:00 SCREENING [code = Medical Ce nter HEPATITIS C SCREENING] Future Scheduled 2014-02-[address] [facility] 00:00:00 SCREENING [code = Medical Ce nter HEPATITIS C SCREENING] Future Scheduled [address] [facility] Test 00:00:00 [facility]ing [facility] Medical Cente r Screening (12+) [code = Tobacco Cessation Counseling and Screening (12+)] Future Scheduled 2002-02-[address] [facility] Test 00:00:00 0-64 YRS (1 - PCV) Medical C enter [code = PNEUMOCOCCAL VACCINE 0-64 YRS (1 - PCV)] Future Scheduled 2002-02-[address] [facility] Test 00:00:00 0-64 YRS (1 - PCV) Medical C enter [code = PNEUMOCOCCAL VACCINE 0-64 YRS (1 - PCV)] Future Scheduled 2002-02-[address] [facility] Test 00:00:00 0-64 YRS (1 - PCV) Medical C enter [code = PNEUMOCOCCAL VACCINE 0-64 YRS (1 - PCV)] Future Scheduled 2002-02-[address] [facility] Test 00:00:00 0-64 YRS (1 - PCV) Medical C enter [code = PNEUMOCOCCAL VACCINE 0-64 YRS (1 - PCV)] Future Scheduled 2002-02-[address] [facility] Test 00:00:00 0-64 YRS (1 - PCV) Medical C enter [code = PNEUMOCOCCAL VACCINE 0-64 YRS (1 - PCV)] Future Scheduled MICROALBUMIN/CREAT Ordered: [facility] Test URINE RATIO [code = 04/30/2019 of Medic ine 9318-7] Future Scheduled TETANUS SHOT (ADULT) [facility] Test [code = TETANUS SHOT of Medi cine (ADULT)] Future Scheduled HIV SCREENING [code [employer] Test = HIV SCREENING] of Medicine Encounters Start End Encounter Admission Attending Care Care Encounter Source Date/Time Date/Time Type Type Clinicians Facility Department ID 2022-01-04 2022-01-04 Outpatient CRUZ PEÑALOZA LUZMA [facility] [id number] [facility] 09:49:22 13:45:04 [facility] of Medicin e 2021-12-27 2021-12-27 Outpatient [facility] [id number] [facility] 09:43:46 09:43:46 2021-12-27 2021-12-27 Orders Eduardo [facility] [id number] 07:00:00 07:15:[address] [facility] 2021-12-26 2021-12-26 Outpatient [facility]ARDO [facility] [id number] [facility] 09[facility]45:08 12:50:29 [facility] 2021-12-26 2021-12-26 Outpatient [facility] [id number] [facility] 00:00:00 00:00:00 2021-12-13 2021-12-20 Inpatient [facility] Medicine [id number] [facility] 20:10:00 14:13:00 [place] 2021-12-13 2021-12-20 [facility] [id number] [facility] 20:10:00 14:13:00 Encounter [facility] 2021-12-15 2021-12-15 Orders Hermelinda [facility] [id number] 00:00:00 00:00:00 Only [facility] [facility] 2021-12-15 2021-12-15 Orders Hermelinda [facility] [id number] 00:00:00 00:00:00 Only [facility] 2021-12-12 2021-12-12 Outpatient LUZMA ALVARADO [facility] [id number] [facility] 11:23:06 16:39:34 KELSEA Chaudhari e of Medicin e 2020-07-08 2020-07-08 Outpatient [facility] [id number] [facility] 00:00:00 00:00:00 2019-04-30 2019-04-30 Office LUZMA Ackerman [id number] [facility] 12:24:02 13:24:02 Visit [id number] [id number] of [id number] [facility] 310 e Results Test Description Test Time Test Comments Results Result Comments Source AFB culture + smear (sputum only) 2022-02-15 10:01:20 Test Item Value Reference Range Interpretation Comme nts Result (test code = 6463-4) No acid-fast bacilli isolated in 42 day s AFB Smear (test code = 33568-4) No acid fast bacilli seen [facility]2022-02-15 10:01:20 Test Item Value Reference Range Interpretation Comments CULTURE (BEAKER) (test No acid-fast bacilli code = 1095) isolated in 42 days AFB SMEAR (BEAKER) No acid fast bacilli (test code = 994) seen SARS-CoV2/Influenza/RSV [id number] 14:16:36 Test Item Value Reference Interpretation Comments Range SARS-COV2/RT-PCR Negative Negative The SARS-Co V-2 (test code = target nucleic 32261-4) acids are not detected in thi s specimen. Negat joby results do not preclude SARS-C oV-2 infection and should not be u sed as the sole bas is for patient management decisions. Nega tive results must be combined with clinical observations, patient history , and epidemiolog ical information. A false negative result may occu r if a specimen is improperly collected, transported or handled. This S ARS CoV-2 test is a rapid, real-martha e RT-PCR test intended for e qualitative detection of nucleic acid fr om SARS-CoV-2 in a nasopharyngeal swab specimen colle ben from individual s suspected of COVID-19 by the ir healthcare provider. Influenza A RT-PCR Negative Negative The Flu A target (test code = [place] [address]-2) not detected in this specimen. Influenza B RT-PCR Negative Negative The Flu B target (test code = [place] [address]-2) not detected in this specimen. RSV by RT-PCR (test Negative Negative The RSV target code = 69552-9) nucleic acid s are not detected in this specimen. SALINA (test code = The presence of SALINA) SARS-CoV-2/FLU/RSV viral nucleic acids cannot rule out co-infections or disease caused by other viral or bacterial pathogens. As with any molecular test, mutations within the target regions of the Xpert Xpress SARS-CoV-2/Flu/RSV test could affect primer and/or probe binding resulting in failure to detect the presence of virus or the virus being detected less predictably. False negative results may occur if the virus is present at levels below the analytical limit of detection in this specimen. This Xpert Xpress SARS-CoV-2/Flu/RSV test is a rapid, real-time RT-PCR test intended for the qualitative detection of nucleic acid from Xpert Xpress SARS-CoV-2/Flu/RSV in a nasopharyngeal swab specimen collected from individuals suspected of Xpert Xpress SARS-CoV-2/Flu/RSV by their healthcare provider. Results from [facility] Xpert Xpress SARS-CoV-2/Flu/RSV test should be correlated with the clinical history, epidemiological data, and other data available to the clinician evaluating the patient. Viral nucleic acid may persist in vivo, independent of virus viability. Detection of analyte target(s) does not imply that the corresponding virus(es) are infectious or are the causative agents for clinical symptoms. This test has not been Food and Drug Administration (FDA) cleared or approved and has been authorized by FDA under an Emergency Use Authorization (EUA). This EUA will be effective until the declaration that circumstances exist justifying the authorization of the emergency use of in vitro diagnostic tests for detection and/or diagnosis of COVID-19 is terminated under Section 564(b)(2) of the Act or the EUA is revoked under Section 564(g) of the Act. Fact Sheet for Healthcare Providers:https://johana massey.CASTT/Docu ments/Xpert%20Xpres s%20SARS%20CoV-2/Fa ct%20Sheets/302-390 2%40RPTU-HCQ-0%20HE ALTHCARE%20PROVIDER S%20FACT%20SHEET.pd f Fact Sheet for Healthcare Patients:https://Imperator/Docum ents/Xpert%20Xpress %20SARS%20Cov-2/Fac t%20Sheets/302-3801 %45JGYN-TUO-6%20PAT IENT%20FACT%20SHEET .pdf Lab Interpretation Normal (test code = 47304-9) [facility] [id number] 14:16:36 Test Item Value Reference Range Interpretation Comments SARS-COV2/RT-PCR Negative Negative The SARS-Co V-2 target (test code = nucleic acids a re not 8839613) detected in thi s specimen. Negat joby results do not preclude SARS-CoV-2 infe ction and should not be u sed as the sole basis for patient management deci sions. Negative result s must be combined with c linical observations, p atient history, and epidemiological information. A false negative result may occur if a specimen i s improperly justina ected, transported or handled. This SARS CoV-2 test is a rapid, real-martha e RT-PCR test intended f or the qualitative det ection of nucleic acid fr om SARS-CoV-2 in a nasopharyngeal swab specimen collec ben from individuals lanette pected of COVID-19 by the [facility] ide. INFLUENZA A RT-PCR Negative Negative The Flu A target nucleic (test code = acids are not d etected in 2276619) this specimen. INFLUENZA B RT-PCR Negative Negative The Flu B target nucleic (test code = acids are not d etected in 4439087) this specimen. RSV RT-PCR (test Negative Negative The RSV tar get nucleic code = 7976751) acids are no t detected in this specimen. The presence of SARS-CoV-2/FLU/RSV viral nucleic acids cannot rule out co- infections or disease caused by other viral or bacterial pathogens. As with any molecular test, mutations within the target regions of the Xpert Xpress SARS-CoV-2/Flu/RSV test could affect primer and/or probe binding resulting in failure to detect the presence of virus or the virus being detected less predictably. False negative results may occur if the virus is present at levels below the analytical limit of detection in thisspecimen.This Xpert Xpress SARS-CoV-2/Flu/RSV test is a rapid, real-time RT-PCR test intended for the qualitative detection of nucleic acid from Xpert Xpress SARS-CoV-2/Flu/RSV in a nasopharyngeal swabspecimen collected from individuals suspected of Xpert Xpress SARS-CoV-2/Flu/RSV by their healthcareprovider. Results from [facility] Xpert Xpress SARS-CoV-2/Flu/RSV test should be correlated with the clinical history, epidemiological data, and other data available to the clinician evaluating the patient. Viral nucleic acid may persist in vivo, independent of virus viability. Detection of analyte target(s)does not imply that the corresponding virus(es) are infectious or are the causative agents for clinical symptoms.This test has not been Food and Drug Administration (FDA) cleared or approved and has been authorized by FDA under an Emergency Use Authorization (EUA). This EUA will be effective until thedeclaration that circumstances exist justifying the authorization of the emergency use of in vitro diagnostic tests for detection and/or diagnosis of COVID-19 is terminated under Section 564(b)(2) of the Act or the EUA is revoked under Section 564(g) of the Act.Fact Sheet for Healthcare Providers:https ://www.CASTT/Documents/Xpert%20Xpress%20SARS%20CoV-2/Fact%20Sheets/302-390 2%98NLBB-ORR-9%20HEALTHCARE%20PROVIDERS%20FACT%20SHEET.pdfFact Sheet for Healthcare Patients:https://www.CASTT/Docum ents/Xpert%20Xpress%20SARS%20Cov-2/Fact%20Sheets/302-3801%26CRVP-TWH-5%20PATIENT %20FACT%20SHEET.pdfFungus culture + [id number] 00:48:09 Test Item Value Reference Range Interpretation Comments Result (test code = 3+ Tanika albicans A 6463-4) Fungus Smear (test code = <1+ yeast 1406) Lab Interpretation (test Abnormal code = 75019-3) [facility] [id number] 00:48:09 Test Item Value Reference Range Interpretation Comments CULTURE (BEAKER) (test A 3+ Ca ndida albicans code = 1095) FUNGUS SMEAR (BEAKER) <1+ yeast (test code = 1406) CF Respiratory Culture ([facility] only)2021-12-31 11:29:41 Test Item Value Reference Range Interpretation Comments Result (test code = 3+ Normal respiratory 6463-4) tip present [facility] ([facility] only)2021-12-31 11:29:41 Test Item Value Reference Range Interpretation Comments Result (test code = 3+ Normal respiratory 6463-4) tip present [facility] Respiratory Culture ([facility] only)2021-12-31 11:29:41 Test Item Value Reference Range Interpretation Comments Result (test code = 3+ Normal respiratory 6463-4) tip present [facility] [id number] 11:29:41 Test Item Value Reference Range Interpretation Comments CULTURE (BEAKER) 3+ Normal respiratory (test code = 1095) tip present SPIN/CONCENTRATION [id number] 12:01:15 Test Item Value Reference Range Interpretation Comments Concentration charged (test code = Done 2657) [facility] [id number] 12:01:15 Test Item Value Reference Range Interpretation Comments Concentration charged (test code = Done 2657) [facility] [id number] 12:01:15 Test Item Value Reference Range Interpretation Comments Concentration charged (test code = Done 2657) [facility] [id number] 12:01:15 Test Item Value Reference Range Interpretation Comments CONCENTRATION CHARGED (BEAKER) (test Done code = 2657) POCT-GLUCOSE [id number] 14:09:13 Test Item Value Reference Range Interpretation Comments POC-GLUCOSE METER 389 mg/dL 70-110 H : TESTED A T [facility] 6720 (BEAKER) (test code = [facility] [place] [employer] [facility], 1538) 34881: Emissions Testing Technician/Techni ata ID = [id number] for Roe mei (contract)Glory POCT-GLUCOSE [id number] 14:09:07 Test Item Value Reference Range Interpretation Comments POC-GLUCOSE METER 288 mg/dL 70-110 H : TESTED A T [facility] 6720 (BEAKER) (test code = [facility] [place] [employer] [facility], 1538) 87330: Emissions Testing Technician/Techni ata ID = [id number] for Ea ves (contract), Cou rtney POCT-GLUCOSE [id number] 11:39:48 Test Item Value Reference Range Interpretation Comments POC-GLUCOSE METER 275 mg/dL 70-110 H : TESTED A T [facility] 6720 (BEAKER) (test code = [facility], 1538) 28225: Emissions Testing Technician/Techni ata ID = [id number] for Ea ves (contract), Cou rtney POCT-GLUCOSE [id number] 11:39:48 Test Item Value Reference Range Interpretation Comments POC-GLUCOSE METER > mg/dL 70-110 HH : TESTED A T [facility] 6720 (BEAKER) (test code = [facility], 1538) 86630: Emissions Testing Technician/Techni ata ID = [id number] for WALK ER, ABDIFATAH POCT-GLUCOSE [id number] 11:39:48 Test Item Value Reference Range Interpretation Comments POC-GLUCOSE METER 449 mg/dL 70-110 HH : TESTED A T [facility] 6720 (BEAKER) (test code = [facility], 1538) 18472: Emissions Testing Technician/Techni ata ID = [id number] for WA LKER, ABDIFATAH POCT-GLUCOSE [id number] 11:39:48 Test Item Value Reference Range Interpretation Comments POC-GLUCOSE METER 285 mg/dL 70-110 H : TESTED A T [facility] 6720 (BEAKER) (test code = [facility], 1538) 58105: Emissions Testing Technician/Techni ata ID = [id number] for Ea ves (contract), Cou rtney POCT-GLUCOSE [id number] 11:39:43 Test Item Value Reference Range Interpretation Comments POC-GLUCOSE METER 334 mg/dL 70-110 H : TESTED A T [facility] 6720 (BEAKER) (test code = [facility], 1538) 61684: Emissions Testing Technician/Techni ata ID = [id number] for Sukhwinder-Richey (contract), Tif adolfo POCT-GLUCOSE [id number] 11:39:43 Test Item Value Reference Range Interpretation Comments POC-GLUCOSE METER > mg/dL 70-110 HH : TESTED A T [facility] 6720 (BEAKER) (test code = [facility], 1538) 19435: Emissions Testing Technician/Techni ata ID = [id number] for Eave s (contract), Cou rtney POCT-GLUCOSE [id number] 11:39:43 Test Item Value Reference Range Interpretation Comments POC-GLUCOSE METER 307 mg/dL 70-110 H : TESTED A T [facility] 6720 (BEAKER) (test code = [facility], 153) 78447: Emissions Testing Technician/Techni ata ID = [id number] for Ea ves (contract), Cou rtney POCT-GLUCOSE [id number] 11:39:42 Test Item Value Reference Range Interpretation Comments POC-GLUCOSE METER 218 mg/dL 70-110 H : TESTED A T [facility] 6720 (BEAKER) (test code = [facility], 1538) 77572: Emissions Testing Technician/Techni ata ID = [id number] for Ea ves (contract), Cou rtney POCT-GLUCOSE [id number] 11:39:42 Test Item Value Reference Range Interpretation Comments POC-GLUCOSE METER 211 mg/dL 70-110 H : TESTED A T [facility] 6720 (BEAKER) (test code = [facility], 1538) 10786: Emissions Testing Technician/Techni ata ID = [id number] for JESSE FARR POC-Glucose [id number] 11:58:27 Test Item Value Reference Range Interpretation Comments POC-Glucose Meter (test 287 mg/dL 70-110 H : TE STED AT [facility] code = 1538) [address] [place] [address], 770 30: Emissions Testing Technician/Techni ata ID = [id number] for Eaves (contract ), Gloria Lab Interpretation (test Abnormal code = 36695-1) [facility] [id number] 11:58:27 Test Item Value Reference Range Interpretation Comments POC-Glucose Meter (test 287 mg/dL 70-110 H : TE STED AT [facility] code = 1538) 67[address] [facility], 770 30: Emissions Testing Technician/Techni ata ID = [id number] for Eaves (contract ), Gloria Lab Interpretation (test Abnormal code = 35481-4) [facility]ucose [id number] 11:58:27 Test Item Value Reference Range Interpretation Comments POC-Glucose Meter (test 287 mg/dL 70-110 H : TE STED AT [facility] code = 1538) 6720 [facility], 770 30: Emissions Testing Technician/Techni ata ID = [id number] for Eaves (contract ), Gloria Lab Interpretation (test Abnormal code = 01715-6) [facility]ucose [id number] 11:58:27 Test Item Value Reference Range Interpretation Comments POC-Glucose Meter (test 287 mg/dL 70-110 H : TE STED AT [facility] code = 1538) 6720 [facility], 770 30: Emissions Testing Technician/Techni ata ID = [id number] for Eaves (contract ), Gloria Lab Interpretation (test Abnormal code = 83510-8) [facility]-GLUCOSE [id number] 11:58:27 Test Item Value Reference Range Interpretation Comments POC-GLUCOSE METER 287 mg/dL 70-110 H : TESTED A T [facility] 6720 (BEAKER) (test code = [facility], 1538) 34640: Emissions Testing Technician/Techni ata ID = [id number] for Ea ves (contract), [facility] POCT-GLUCOSE [id number] 07:15:40 Test Item Value Reference Range Interpretation Comments POC-GLUCOSE METER 153 mg/dL 70-110 H : TESTED A T [facility] 6720 (BEAKER) (test code = [facility], 1538) 18450: Emissions Testing Technician/Techni ata ID = [id number] for Ea ves (contract), Cou rtney BASIC METABOLIC [id number] 05:04:25 Test Item Value Reference Range Interpretation Comments SODIUM (BEAKER) 136 meq/L 136-145 (test code = 381) POTASSIUM 4.5 meq/L 3.5-5.1 (BEAKER) (test code = 379) CHLORIDE (BEAKER) 103 meq/L 98-107 (test code = 382) CO2 (BEAKER) 27 meq/L 22-29 (test code = 355) BLOOD UREA 27 mg/dL 7-21 H NITROGEN (BEAKER) (test code = 354) CREATININE 0.67 mg/dL 0.57-1.25 (BEAKER) (test code = 358) GLUCOSE RANDOM 285 mg/dL 70-105 H (BEAKER) (test code = 652) CALCIUM (BEAKER) 8.5 mg/dL 8.4-10.2 (test code = 697) EGFR (BEAKER) 132 Interpretatio n of eGFR (test code = mL/min/1.73 values Stage De scription 1092) sq m Result G1 Desiree l or high >=90 G2 Mildly decreased 60-89 G3a Mildl y to moderately 45-5 9 G3b Moderately to s everely 30-44 G4 Severl y decreased 15-29 G5 Kidney failure <15Reported eGF R is based on the CKD-EPI 2020 equation that d oes not use a race coefficientEsti mated GFR is not as accur ate as Creatinine Ylnnette toshia in predicting glom erular filtration rate . Estimated GFR is not appl icable for dialysis patien ts Emissions Testing Technician ID - HARPAL EPATIC FUNCTION [id number] 05:04:25 Test Item Value Reference Range Interpretation Comments TOTAL PROTEIN (BEAKER) (test code = 6.1 gm/dL 6.0-8.3 770) ALBUMIN (BEAKER) (test code = 1145) 3.3 g/dL 3.5-5.0 L BILIRUBIN TOTAL (BEAKER) (test code 0.1 mg/dL 0.2-1.2 L = 377) BILIRUBIN DIRECT (BEAKER) (test 0.1 mg/dL 0.1-0.5 code = 706) ALKALINE PHOSPHATASE (BEAKER) (test 128 U/L 40-150 code = 346) AST (SGOT) (BEAKER) (test code = 134 U/L 5-34 H 353) ALT (SGPT) (BEAKER) (test code = 120 U/L 6-55 H 347) Emissions Testing Technician ID - HARPAL MPOCT-GLUCOSE [id number] 21:54:29 Test Item Value Reference Range Interpretation Comments POC-GLUCOSE METER 183 mg/dL 70-110 H : TESTED A T [facility] 6720 (BEAKER) (test code = [place], 1538) 96285: Emissions Testing Technician/Techni ata ID = [id number] for An g, Nika TOBRAMYCIN LEVEL, [id number] 21:48:47 Test Item Value Reference Range Interpretation Comments TOBRAMYCIN RANDOM (BEAKER) (test 0.6 ug/mL code = 544) Reference Range: No NormalsOperator ID - BSPOCT-GLUCOSE [id number] 17:49:48 Test Item Value Reference Range Interpretation Comments POC-GLUCOSE METER 285 mg/dL 70-110 H : TESTED A T [facility] 6720 (BEAKER) (test code = [facility], 1538) 36415: Emissions Testing Technician/Techni ata ID = [id number] for JR CAMPUZANO POC-Glucose [id number] 12:54:23 Test Item Value Reference Range Interpretation Comments POC-Glucose Meter (test 229 mg/dL 70-110 H : TE STED AT [facility] code = 1538) 6720 [facility], 770 30: Emissions Testing Technician/Techni ata ID = [id number] for JR ISLAS Lab Interpretation (test Abnormal code = 28100-6) [facility] [id number] 12:54:23 Test Item Value Reference Range Interpretation Comments POC-GLUCOSE METER 229 mg/dL 70-110 H : [facility] (test code = [facility], 1538) 06956: Emissions Testing Technician/Techni ata ID = [id number] for JR CAMPUZANO POCT-GLUCOSE [id number] 08:54:51 Test Item Value Reference Range Interpretation Comments POC-GLUCOSE METER 143 mg/dL 70-110 H : [facility] ([facility]ER[facility] (test code = [facility], 1538) 62444: Emissions Testing Technician/Techni aat ID = [id number] for JR CAMPUZANO BASIC METABOLIC [id number] 07:15:50 Test Item Value Reference Range Interpretation Comments SODIUM (BEAKER) 138 meq/L 136-145 (test code = 381) POTASSIUM 4.2 meq/L 3.5-5.1 (BEAKER) (test code = 379) CHLORIDE (BEAKER) 107 meq/L 98-107 (test code = 382) CO2 (BEAKER) 26 meq/L 22-29 (test code = 355) BLOOD UREA 26 mg/dL 7-21 H NITROGEN (BEAKER) (test code = 354) CREATININE 0.65 mg/dL 0.57-1.25 (BEAKER) (test code = 358) GLUCOSE RANDOM 160 mg/dL 70-105 H (BEAKER) (test code = 652) CALCIUM (BEAKER) 8.4 mg/dL 8.4-10.2 (test code = 697) EGFR (BEAKER) 133 Interpretatio n of eGFR (test code = mL/min/1.73 values Stage De scription 1092) sq m Result G1 Desiree l or high >=90 G2 Mildly decreased 60-89 G3a Mild ly to moderately 45-5 9 G3b Moderately to s everely 30-44 G4 Severl y decreased 15-29 G5 Kidney failure <15Reported eGF R is based on the CKD-EPI 1 equation that d oes not use a race coefficientEsti mated GFR is not as accur ate as Creatinine Lynnette toshia in predicting glom erular filtration rate . Estimated GFR is not appl icable for dialysis patien ts Emissions Testing Technician ID - JOSEESETH LHEPATIC FUNCTION [id number] 07:15:50 Test Item Value Reference Range Interpretation Comments TOTAL PROTEIN (BEAKER) (test code = 6.0 gm/dL 6.0-8.3 770) ALBUMIN (BEAKER) (test code = 1145) 3.2 g/dL 3.5-5.0 L BILIRUBIN TOTAL (BEAKER) (test code 0.2 mg/dL 0.2-1.2 = 377) BILIRUBIN DIRECT (BEAKER) (test 0.1 mg/dL 0.1-0.5 code = 706) ALKALINE PHOSPHATASE (BEAKER) (test 118 U/L 40-150 code = 346) AST (SGOT) (BEAKER) (test code = 52 U/L 5-34 H 353) ALT (SGPT) (BEAKER) (test code = 67 U/L 6-55 H 347) Emissions Testing Technician ID - JOSEESETH LCBC W/PLT COUNT & AUTO [id number] 06:52:09 Test Item Value Reference Range Interpretation Comments WHITE BLOOD CELL COUNT (BEAKER) 9.1 K/ L 3.5-10.5 (test code = 775) RED BLOOD CELL COUNT (BEAKER) 4.98 M/ L 4.63-6.08 (test code = 761) HEMOGLOBIN (BEAKER) (test code = 14.4 GM/DL 13.7-17.5 410) HEMATOCRIT (BEAKER) (test code = 43.8 % 40.1-51.0 411) MEAN CORPUSCULAR VOLUME (BEAKER) 88 fL 79-92 (test code = 753) MEAN CORPUSCULAR HEMOGLOBIN 28.9 pg 25.7-32.2 (BEAKER) (test code = 751) MEAN CORPUSCULAR HEMOGLOBIN CONC 32.9 GM/DL 32.3-36.5 (BEAKER) (test code = 752) RED CELL DISTRIBUTION WIDTH 12.2 % 11.6-14.4 (BEAKER) (test code = 412) PLATELET COUNT (BEAKER) (test 409 K/CU MM 150-450 code = 756) MEAN PLATELET VOLUME (BEAKER) 9.0 fL 9.4-12.4 L (test code = 754) NUCLEATED RED BLOOD CELLS 0 /100 WBC 0-0 (BEAKER) (test code = 413) NEUTROPHILS RELATIVE PERCENT 52 % (BEAKER) (test code = 429) LYMPHOCYTES RELATIVE PERCENT 32 % (BEAKER) (test code = 430) MONOCYTES RELATIVE PERCENT 9 % (BEAKER) (test code = 431) EOSINOPHILS RELATIVE PERCENT 5 % (BEAKER) (test code = 432) BASOPHILS RELATIVE PERCENT 1 % (BEAKER) (test code = 437) NEUTROPHILS ABSOLUTE COUNT 4.78 K/ L 1.78-5.38 (BEAKER) (test code = 670) LYMPHOCYTES ABSOLUTE COUNT 2.88 K/ L 1.32-3.57 (BEAKER) (test code = 414) MONOCYTES ABSOLUTE COUNT (BEAKER) 0.80 K/ L 0.30-0.82 (test code = 415) EOSINOPHILS ABSOLUTE COUNT 0.49 K/ L 0.04-0.54 (BEAKER) (test code = 416) BASOPHILS ABSOLUTE COUNT (BEAKER) 0.08 K/ L 0.01-0.08 (test code = 417) IMMATURE GRANULOCYTES-RELATIVE 1.00 % 0.00-1.00 PERCENT (BEAKER) (test code = 2801) POCT-GLUCOSE [id number] 21:43:14 Test Item Value Reference Range Interpretation Comments POC-GLUCOSE METER 207 mg/dL 70-110 H : TESTED A T [facility] 6720 (BEAKER) (test code = [place], 1538) 69964: Emissions Testing Technician/Techni ata ID = [id number] for Fa Magalys jacobeni POCT-GLUCOSE [id number] 18:12:04 Test Item Value Reference Range Interpretation Comments POC-GLUCOSE METER 254 mg/dL 70-110 H : TESTED A T [facility] 6720 (BEAKER) (test code = [place] Alves [facility], 1538) 03769: Emissions Testing Technician/Techni ata ID = [id number] for JR CAMPUZANO POCT-GLUCOSE [id number] 12:55:41 Test Item Value Reference Range Interpretation Comments POC-GLUCOSE METER 303 mg/dL 70-110 H : TESTED A T [facility] 6720 (BEAKER) (test code = ABIOLA Alves [facility], 1538) 36855: Emissions Testing Technician/Techni ata ID = [id number] for JR CAMPUZANO BASIC METABOLIC [id number] 10:02:06 Test Item Value Reference Range Interpretation Comments SODIUM (BEAKER) 134 meq/L 136-145 L (test code = 381) POTASSIUM 4.3 meq/L 3.5-5.1 (BEAKER) (test code = 379) CHLORIDE (BEAKER) 103 meq/L 98-107 (test code = 382) CO2 (BEAKER) 23 meq/L 22-29 (test code = 355) BLOOD UREA 28 mg/dL 7-21 H NITROGEN (BEAKER) (test code = 354) CREATININE 0.72 mg/dL 0.57-1.25 (BEAKER) (test code = 358) GLUCOSE RANDOM 258 mg/dL 70-105 H (BEAKER) (test code = 652) CALCIUM (BEAKER) 8.8 mg/dL 8.4-10.2 (test code = 697) EGFR (BEAKER) 130 Interpretatio n of eGFR (test code = mL/min/1.73 values Stage De scription 1092) sq m Result G1 Desiree l or high >=90 G2 Mildly decreased 60-89 G3a Mildl y to moderately 45-5 9 G3b Moderately to s everely 30-44 G4 Severl y decreased 15-29 G5 Kidney failure <15Reported eGF R is based on the CKD-EPI 2020 equation that d oes not use a race coefficientEsti mated GFR is not as accur ate as Creatinine Lynnette pope in predicting glom erular filtration rate . Estimated GFR is not appl icable for dialysis patien ts Emissions Testing Technician ID - TRINI GPOCT-GLUCOSE [id number] 07:40:20 Test Item Value Reference Range Interpretation Comments POC-GLUCOSE METER 204 mg/dL 70-110 H : TESTED A T [facility] 6720 (BEAKER) (test code = [place], 1538) [address]: Emissions Testing Technician/Techni ata ID = [id number] for JR CAMPUZANO CBC W/PLT COUNT & AUTO [id number] 06:20:44 Test Item Value Reference Range Interpretation Comments WHITE BLOOD CELL COUNT (BEAKER) 9.1 K/ L 3.5-10.5 (test code = 775) RED BLOOD CELL COUNT (BEAKER) 5.04 M/ L 4.63-6.08 (test code = 761) HEMOGLOBIN (BEAKER) (test code = 14.6 GM/DL 13.7-17.5 410) HEMATOCRIT (BEAKER) (test code = 44.0 % 40.1-51.0 411) MEAN CORPUSCULAR VOLUME (BEAKER) 87 fL 79-92 (test code = 753) MEAN CORPUSCULAR HEMOGLOBIN 29.0 pg 25.7-32.2 (BEAKER) (test code = 751) MEAN CORPUSCULAR HEMOGLOBIN CONC 33.2 GM/DL 32.3-36.5 (BEAKER) (test code = 752) RED CELL DISTRIBUTION WIDTH 11.9 % 11.6-14.4 (BEAKER) (test code = 412) PLATELET COUNT (BEAKER) (test 448 K/CU MM 150-450 code = 756) MEAN PLATELET VOLUME (BEAKER) 9.2 fL 9.4-12.4 L (test code = 754) NUCLEATED RED BLOOD CELLS 0 /100 WBC 0-0 (BEAKER) (test code = 413) NEUTROPHILS RELATIVE PERCENT 48 % (BEAKER) (test code = 429) LYMPHOCYTES RELATIVE PERCENT 37 % (BEAKER) (test code = 430) MONOCYTES RELATIVE PERCENT 9 % (BEAKER) (test code = 431) EOSINOPHILS RELATIVE PERCENT 5 % (BEAKER) (test code = 432) BASOPHILS RELATIVE PERCENT 1 % (BEAKER) (test code = 437) NEUTROPHILS ABSOLUTE COUNT 4.39 K/ L 1.78-5.38 (BEAKER) (test code = 670) LYMPHOCYTES ABSOLUTE COUNT 3.32 K/ L 1.32-3.57 (BEAKER) (test code = 414) MONOCYTES ABSOLUTE COUNT (BEAKER) 0.80 K/ L 0.30-0.82 (test code = 415) EOSINOPHILS ABSOLUTE COUNT 0.41 K/ L 0.04-0.54 (BEAKER) (test code = 416) BASOPHILS ABSOLUTE COUNT (BEAKER) 0.09 K/ L 0.01-0.08 H (test code = 417) IMMATURE GRANULOCYTES-RELATIVE 0.90 % 0.00-1.00 PERCENT (BEAKER) (test code = 2801) POCT-GLUCOSE [id number] 21:10:15 Test Item Value Reference Range Interpretation Comments POC-GLUCOSE METER 279 mg/dL 70-110 H : TESTED A T [facility] 6720 (BEAKER) (test code = [facility], 1538) [address]: Emissions Testing Technician/Techni ata ID = [id number] for PEREZ GARCÍA RA POCT-GLUCOSE [id number] 17:04:12 Test Item Value Reference Range Interpretation Comments POC-GLUCOSE METER 388 mg/dL 70-110 H : TESTED A T [facility] 6720 (BEAKER) (test code = [facility], 1538) [address]: Emissions Testing Technician/Techni ata ID = [id number] for Ea ves (contract), Cou rtney POCT-GLUCOSE [id number] 12:17:23 Test Item Value Reference Range Interpretation Comments POC-GLUCOSE METER 310 mg/dL 70-110 H : TESTED A T [facility] 6720 (BEAKER) (test code = [facility], 1538) [address]: Emissions Testing Technician/Techni ata ID = [id number] for Ea ves (contract), Cou rtney RAD, CHEST, 1 VIEW, NON [id number] 11:10:00Reason for exam:->PICC LINE PLACEMENTShould this be performed at the bedside?->Yes [facility] 1995 Sex: MFINAL REPORT TECHNIQUE: Frontal radiograph of the chest. Indication: PICC placementCOMPARISON: None FINDINGS: Left-sided PICC is seen with tip in the proximal SVC. The heart is normalin size. Peripheral pulmonary opacities are again seen. There is no pneumothorax or pleural effusion. The upper abdomen is normal. No bone abnormality is seen. IMPRESSION:Interval PICC placement. Unchan ged peripheral opacities. Signed: Betzy Johansen Verified Date/Time: 12/17/2021 11:10:05 Reading Location: [address] Transitional Reading Room POCT- GLUCOSE [id number] 07:17:00 Test Item Value Reference Range Interpretation Comments POC-GLUCOSE METER 285 mg/dL 70-110 H : TESTED A T [facility] 6720 (BEAKER) (test code = [facility], 1538) [address]: Emissions Testing Technician/Techni ata ID = [id number] for Roe mei (contract)Glory POCT-GLUCOSE [id number] 05:45:17 Test Item Value Reference Range Interpretation Comments POC-GLUCOSE METER 390 mg/dL 70-110 H : TESTED A T [facility] 6720 (BEAKER) (test code = [facility] [place] [employer] [facility], 1538) [address]: Emissions Testing Technician/Techni ata ID = [id number] for Alek baker Tuyet BASIC METABOLIC [id number] 03:37:09 Test Item Value Reference Range Interpretation Comments SODIUM (BEAKER) 132 meq/L 136-145 L (test code = 381) POTASSIUM 4.5 meq/L 3.5-5.1 (BEAKER) (test code = 379) CHLORIDE (BEAKER) 101 meq/L 98-107 (test code = 382) CO2 (BEAKER) 23 meq/L 22-29 (test code = 355) BLOOD UREA 24 mg/dL 7-21 H NITROGEN (BEAKER) (test code = 354) CREATININE 1.00 mg/dL 0.57-1.25 (BEAKER) (test code = 358) GLUCOSE RANDOM 481 mg/dL 70-105 HH (BEAKER) (test code = 652) CALCIUM (BEAKER) 8.3 mg/dL 8.4-10.2 L (test code = 697) EGFR (BEAKER) 108 Interpretatio n of eGFR (test code = mL/min/1.73 values Stage De scription 1092) sq m Result G1 Desiree l or high >=90 G2 Mildly decreased 60-89 G3a Mildl y to moderately 45-5 9 G3b Moderately to s everely 30-44 G4 Severl y decreased 15-29 G5 Kidney failure <15Reported eGF R is based on the CKD-EPI 2020 equation that d oes not use a race coefficientEsti mated GFR is not as accur ate as Creatinine Lynnette toshia in predicting glom erular filtration rate . Estimated GFR is not appl icable for dialysis patien ts Emissions Testing Technician ID - ADMINCBC W/PLT COUNT & AUTO [id number] 03:06:01 Test Item Value Reference Range Interpretation Comments WHITE BLOOD CELL COUNT (BEAKER) 8.4 K/ L 3.5-10.5 (test code = 775) RED BLOOD CELL COUNT (BEAKER) 4.81 M/ L 4.63-6.08 (test code = 761) HEMOGLOBIN (BEAKER) (test code = 14.0 GM/DL 13.7-17.5 410) HEMATOCRIT (BEAKER) (test code = 42.7 % 40.1-51.0 411) MEAN CORPUSCULAR VOLUME (BEAKER) 89 fL 79-92 (test code = 753) MEAN CORPUSCULAR HEMOGLOBIN 29.1 pg 25.7-32.2 (BEAKER) (test code = 751) MEAN CORPUSCULAR HEMOGLOBIN CONC 32.8 GM/DL 32.3-36.5 (BEAKER) (test code = 752) RED CELL DISTRIBUTION WIDTH 11.7 % 11.6-14.4 (BEAKER) (test code = 412) PLATELET COUNT (BEAKER) (test 426 K/CU MM 150-450 code = 756) MEAN PLATELET VOLUME (BEAKER) 9.4 fL 9.4-12.4 (test code = 754) NUCLEATED RED BLOOD CELLS 0 /100 WBC 0-0 (BEAKER) (test code = 413) NEUTROPHILS RELATIVE PERCENT 45 % (BEAKER) (test code = 429) LYMPHOCYTES RELATIVE PERCENT 39 % (BEAKER) (test code = 430) MONOCYTES RELATIVE PERCENT 8 % (BEAKER) (test code = 431) EOSINOPHILS RELATIVE PERCENT 6 % (BEAKER) (test code = 432) BASOPHILS RELATIVE PERCENT 1 % (BEAKER) (test code = 437) NEUTROPHILS ABSOLUTE COUNT 3.76 K/ L 1.78-5.38 (BEAKER) (test code = 670) LYMPHOCYTES ABSOLUTE COUNT 3.31 K/ L 1.32-3.57 (BEAKER) (test code = 414) MONOCYTES ABSOLUTE COUNT (BEAKER) 0.67 K/ L 0.30-0.82 (test code = 415) EOSINOPHILS ABSOLUTE COUNT 0.53 K/ L 0.04-0.54 (BEAKER) (test code = 416) BASOPHILS ABSOLUTE COUNT (BEAKER) 0.08 K/ L 0.01-0.08 (test code = 417) IMMATURE GRANULOCYTES-RELATIVE 0.70 % 0.00-1.00 PERCENT (BEAKER) (test code = 2801) TOBRAMYCIN LEVEL, [id number] 02:39:31 Test Item Value Reference Range Interpretation Comments TOBRAMYCIN RANDOM (BEAKER) (test code < ug/mL = 544) Reference Range: No NormalsOperator ID - ADMINPOCT-GLUCOSE [id number] 21:45:11 Test Item Value Reference Range Interpretation Comments POC-GLUCOSE METER 366 mg/dL 70-110 H : TESTED A T [facility] 6720 (BEAKER) (test code = [facility], 1538) 16[address]: Emissions Testing Technician/Techni ata ID = [id number] for Cat vaca (contract)Zach i POCT-GLUCOSE [id number] 18:07:56 Test Item Value Reference Range Interpretation Comments POC-GLUCOSE METER 255 mg/dL 70-110 H : TESTED A T [facility] 6720 (BEAKER) (test code = [facility], 1538) 77448: Emissions Testing Technician/Techni ata ID = [id number] for JR CAMPUZANO POCT-GLUCOSE [id number] 17:31:19 Test Item Value Reference Range Interpretation Comments POC-GLUCOSE METER 196 mg/dL 70-110 H : TESTED A T [facility] 6720 (BEAKER) (test code = [facility], [facility]) 58763: Emissions Testing Technician/Techni ata ID = [id number] for Azael Suárez POCT-GLUCOSE [id number] 17:11:14 Test Item Value Reference Range Interpretation Comments POC-GLUCOSE METER 261 mg/dL 70-110 H : TESTED A T [facility] 6720 (BEAKER) (test code = [facility], [facility]8) 89432: Emissions Testing Technician/Techni ata ID = [id number] for JR CAMPUZANO POCT-GLUCOSE [id number] 16:51:33 Test Item Value Reference Range Interpretation Comments POC-GLUCOSE METER 399 mg/dL 70-110 H : TESTED A T [facility] 6720 (BEAKER) (test code = [facility], [facility]) 67893: Emissions Testing Technician/Techni ata ID = [id number] for Ea ves (contract), Cou rtney POCT-GLUCOSE [id number] 16:32:01 Test Item Value Reference Range Interpretation Comments POC-GLUCOSE METER 250 mg/dL 70-110 H : TESTED A T [facility] 6720 (BEAKER) (test code = [facility], [facility]) 44716: Emissions Testing Technician/Techni ata ID = [id number] for Ca varun, Tisha POCT-GLUCOSE [id number] 16:25:27 Test Item Value Reference Range Interpretation Comments POC-GLUCOSE METER 289 mg/dL 70-110 H : TESTED A T [facility] 6720 (BEAKER) (test code = [facility], [facility]) 39922: Emissions Testing Technician/Techni ata ID = [id number] for [place] LKER, ABDIFATAH POCT-GLUCOSE [id number] 16:19:42 Test Item Value Reference Range Interpretation Comments POC-GLUCOSE METER 420 mg/dL 70-110 HH : TESTED A T [facility] 6720 (BEAKER) (test code = [facility], [facility]) 19254: Emissions Testing Technician/Techni ata ID = [id number] for Ea ves (contract), Cou rtney POCT-GLUCOSE [id number] 16:17:30 Test Item Value Reference Range Interpretation Comments POC-GLUCOSE METER 336 mg/dL 70-110 H : TESTED A [place] [facility] 6720 (BEAKER) (test code = [place], 1538) [address]: Emissions Testing Technician/Techni ata ID = [id number] for Roe mei (contract)Glory RAD, CHEST, 2 [id number] 14:04:00 [facility] 1995 Sex: MFINAL REPORT HISTORY: Worsening cough COMPARISON: 01/21/2018 FINDINGS: There are peripheral pulmonary opacities throughout the right lung and in the mid to upper left lung. These appear to be new since the prior study. These findings are suggestive of atypical pneumonitis or post inflammatory scarring related to such. This distribution of pneumonia can be seen with Covid pneumonia aswell as other causes of atypical pneumonia. No pleural effusions or pneumothorax. The heart shadow is normal in size. The thoracic aorta is mildly tortuous. Degenerative changes are present in the spine. IMPRESSION: Findings suggestive of bilateral atypical pneumonia, right greater than left. Signed: Kita Ac MDReport Verified Date/Time: 12/13/2021 14:04:14 Reading Location: [facility] Radiology Reading Room AFB CULTURE + SMEAR (SPUTUM ONLY)2020-08-26 08:47:00 Test Item Value Reference Range Interpretation Comments CULTURE (BEAKER) (test No acid-fast bacilli code = 1095) isolated in 42 days AFB SMEAR (BEAKER) No acid fast bacilli (test code = 994) seen FUNGUS CULTURE + [id number] 04:01:00 Test Item Value Reference Range Interpretation Comments CULTURE (BEAKER) A <1+ Tanika albicans (test code = 1095) FUNGUS SMEAR No fungi seen (BEAKER) (test code = 1406) SPIN/CONCENTRATION [id number] 09:34:00 Test Item Value Reference Range Interpretation Comments CONCENTRATION CHARGED (BEAKER) (test Done code = 2657) POCT HEMOGLOBIN [id number] 19:22:00 Test Item Value Reference Range Interpretation Comments HEMOGLOBIN A1C (test code = 4548-4) 9.8 % 4-5.6 A Lab Interpretation (test code = Abnormal 93176-6) [facility] [id number] 19:05:00 Test Item Value Reference Range Interpretation Comments GLUCOSE BLOOD (test code = 2341-6) 70-105 [facility]NON-SPUTUM)2019-04-01 17:21:00 Test Item Value Reference Range Interpretation Comments CULTURE (BEAKER) (test No acid-fast bacilli code = 1095) isolated in 42 days AFB SMEAR (BEAKER) No acid fast bacilli (test code = 994) seen CF RESPIRATORY [id number] 06:24:00 Test Item Value Reference Range Interpretation Comments CULTURE (BEAKER) PSEUDOMONAS A 1+ Pseudomo fco (test code = 1095) AERUGINOSA aeruginos a Amikacin (test code Susceptible 0-16 R = 1) , Resistant <0 or >16 Aztreonam (test Susceptible 0-8 , S code = 32) Resistant <0 or >8 Cefepime (test code Susceptible 0-8 , R = 51) Resistant <0 or >8 Ceftazidime (test Susceptible 0-8 , S code = 27) Resistant <0 or >8 Ciprofloxacin (test Susceptible 0-0.5 S code = 7) , Resistant <0 or >.5 Gentamicin (test Susceptible 0-4 , R code = 18) Resistant <0 or >4 Levofloxacin (test Susceptible 0-1 , R code = 22) Resistant <0 or >1 Meropenem (test Susceptible 0-2 , S code = 34) Resistant <0 or >2 Piperacillin (test Susceptible 0-16 S code = 24) , Resistant <0 or >16 Piperacillin + Susceptible 0-16 S Tazobactam (test , Resistant <0 or code = 29) >16 Tobramycin (test Susceptible 0-4 , R code = 25) Resistant <0 or >4 4+ Normal respiratory tip presentFUNGUS CULTURE + [id number] 16:45:00 Test Item Value Reference Range Interpretation Comments CULTURE (BEAKER) A 1+ Tanika albicans (test code = 1095) FUNGUS SMEAR No fungi seen (BEAKER) (test code = 1406) CF RESPIRATORY [id number] 11:44:00 Test Item Value Reference Range Interpretation Comments CULTURE (BEAKER) 3+ Normal respiratory (test code = 1095) tip present SPIN/CONCENTRATION [id number] 14:33:00 Test Item Value Reference Range Interpretation Comments CONCENTRATION CHARGED (BEAKER) (test Done code = 2657) ANAEROBIC [id number] 17:37:00 Test Item Value Reference Range Interpretation Comments CULTURE (BEAKER) (test No anaerobes isolated code = 1095) CF RESPIRATORY [id number] 12:48:00 Test Item Value Reference Range Interpretation Comments CULTURE (BEAKER) A 3+ Beta-hem olytic (test code = 1095) streptoco ccus group B, by serological yvon uping 4+ Normal respiratory tip presentWOUND CULTURE + GRAM [id number] 06:37:00 Test Item Value Reference Range Interpretation Comments CULTURE (BEAKER) (test <1+ Skin tip code = 1095) GRAM STAIN RESULT 2+ WBCs (BEAKER) (test code = 1123) GRAM STAIN RESULT 1+ gram positive cocci (BEAKER) (test code = in chains and pairs 99526) POCT-GLUCOSE [id number] 16:45:00 Test Item Value Reference Range Interpretation Comments POC-GLUCOSE METER 147 mg/dL 70-110 H TESTED AT [facility] 6720 ([facility]) (test code = [place] 1538) [address] [id number] 14:03:00 Test Item Value Reference Range Interpretation Comments BLOOD UREA NITROGEN (AKER) (test 6 mg/dL 7-21 L code = 354) [id number] 14:03:00 Test Item Value Reference Range Interpretation Comments CREATININE (AKER) 0.74 mg/dL 0.57-1.25 (test code = 358) EGFR (BEAKER) (test 134 mL/min/1.73 ESTIM ATED GFR IS code = 1092) sq m NOT ACCURATE CREATININE CLEARANCE IN PREDICTING GLOMERULAR FILTRATION RATE . ESTIMATED GFR I S NOT APPLICABLE FOR DIALYSIS PATIEN TS. POCT-GLUCOSE [id number] 13:31:00 Test Item Value Reference Range Interpretation Comments POC-GLUCOSE METER 211 mg/dL 70-110 H TESTED AT [place] [address] ([facility]) (test code = [facility] [employer] [facility] 1538) [address] POCT-GLUCOSE [id number] 11:25:00 Test Item Value Reference Range Interpretation Comments POC-GLUCOSE METER 92 mg/dL 70-110 TESTED AT [place] [address] ([facility]) (test code = [facility] [place] [employer] [facility] [address] 1538) POCT-GLUCOSE [id number] 21:33:00 Test Item Value Reference Range Interpretation Comments POC-GLUCOSE METER 252 mg/dL 70-110 H TESTED AT [place] [address] ([facility]) (test code = [facility] [place] [employer] [facility] 1538) [address] POCT-GLUCOSE [id number] 17:49:00 Test Item Value Reference Range Interpretation Comments POC-GLUCOSE METER 235 mg/dL 70-110 H TESTED AT [place] [address] ([facility]) (test code = [facility] [place] [employer] [facility] 1538) [address] POCT-GLUCOSE [id number] 15:55:00 Test Item Value Reference Range Interpretation Comments POC-GLUCOSE METER 135 mg/dL 70-110 H TESTED AT [place] [address] ([facility]) (test code = [facility] [employer] [facility] 1538) [address] POCT-GLUCOSE [id number] 08:09:00 Test Item Value Reference Range Interpretation Comments POC-GLUCOSE METER 127 mg/dL 70-110 H TESTED AT [place] [address] ([facility]) (test code = [facility] [place] [employer] [place] 1538) [address] [id number] 07:00:00 Test Item Value Reference Range Interpretation Comments BLOOD UREA NITROGEN ([facility]) (test 10 mg/dL 7- code = 354) [id number] 07:00:00 Test Item Value Reference Range Interpretation Comments CREATININE ([facility]) 0.70 mg/dL 0.57-1.25 (test code = 358) EGFR ([facility]) (test 142 mL/min/1.73 ESTIM ATED GFR IS code = 1092) sq m NOT ACCURATE CREATININE CLEARANCE IN PREDICTING GLOMERULAR FILTRATION RATE . ESTIMATED GFR I S NOT APPLICABLE FOR DIALYSIS PATIEN TS. TOBRAMYCIN LEVEL, [id number] 06:54:00 Test Item Value Reference Range Interpretation Comments TOBRAMYCIN RANDOM (ZORA) (test 0.5 ug/mL code = 544) Reference Range: No NormalsPOCT-GLUCOSE [id number] 00:33:00 Test Item Value Reference Range Interpretation Comments POC-GLUCOSE METER 313 mg/dL 70-110 H Notified R Brian MD/TESTED (ZORA) (test code = AT [facility] 67[address] [facility] [address] POCT-GLUCOSE [id number] 21:24:00 Test Item Value Reference Range Interpretation Comments POC-GLUCOSE METER 448 mg/dL 70-110 HH Notified R Brian MD/TESTED (ZORA) (test code = AT [facility] 6720 [facility] 1538) [facility] 7703 [address] RAD, CHEST, 1 VIEW, NON [id number] 17:35:00Reason for exam:->CHECK PICC PLACEMENT Should this be performed at the bedside?->YesFINAL REPORT INDICATION: CHECK PICC PLACEMENT COMPARISON:January 21, 2018 at 2: 20 PM TECHNIQUE: Chest radiograph, single view, portable technique. FINDINGS / IMPRESSION: There is interval placement of a right PICC line that terminates in the low SVC, good position. Lungs are clear and cardiac and mediastinal contours normal. Bone density necklace overlies the mediastinum. Signed: Coleman Thapa MDReport Verified Date/Time: 01/21/2018 17:35:59 Reading Location: [facility] B1 [id number] Ortho Consult Reading Room HEMOGLOBIN [id number] 16:24:00 Test Item Value Reference Range Interpretation Comments HEMOGLOBIN A1C (ZORA) (test code = 7.7 % 4.3-6.1 H 368) RAD, CHEST, 2 [id number] 14:40:00Reason for exam:->Cystic FibrosisShould this be performed at the bedside?->NoFINAL REPORT INDICATION: Cystic Fibrosis COMPARISON: None TECHNIQUE: Frontal and lateral views of the chest. FINDINGS: Lungs and pleura: Clear lungs. No effusion.Heart and mediastinum: Normal heart size. Unremarkable mediastinal contours.Osseous structures: No acute abnormality.Additional findings: None. IMPRESSION: No acute intrathoracic abnormality. Signed: JR Schultz Robert MDReport Verified Date/Time: 01/21/2018 14:40:01 Reading Location: [address] Consult Reading R oom RAD, SINUSES PARANASAL, MIN 3 [id number] 14:40:00Reason for exam:->sinusitis FINAL REPORT RAD, SINUSES PARANASAL, MIN 3 VIEWS INDICATION: sinusitis COMPARISON: None TECHNIQUE: Frontal, oblique and lateral views of the paranasal sinuses. IMPRESSION: Paranasal sinus opacification is not present. Visible mastoid air cells are clear. No sclerotic or erosive changes are evident. The mandible is intact. There are no periapical lucencies. Orbital rims are preserved. Septum is midline. Signed: JR Schultz Robert MDReport Verified Date/Time: 01/21/2018 14:40:59 Reading Location: [address] Consult Reading Room CBC W/PLT COUNT & AUTO [id number] 13:37:00 Test Item Value Reference Range Interpretation Comments WHITE BLOOD CELL COUNT (BEAKER) 6.7 K/ L 3.5-10.5 (test code = 775) RED BLOOD CELL COUNT (BEAKER) 5.41 M/ L 4.63-6.08 (test code = 761) HEMOGLOBIN (BEAKER) (test code = 15.8 GM/DL 13.7-17.5 410) HEMATOCRIT (BEAKER) (test code = 48.2 % 40.1-51.0 411) MEAN CORPUSCULAR VOLUME (BEAKER) 89.1 fL 79.0-92.2 (test code = 753) MEAN CORPUSCULAR HEMOGLOBIN 29.2 pg 25.7-32.2 (BEAKER) (test code = 751) MEAN CORPUSCULAR HEMOGLOBIN CONC 32.8 GM/DL 32.3-36.5 (BEAKER) (test code = 752) RED CELL DISTRIBUTION WIDTH 11.9 % 11.6-14.4 (BEAKER) (test code = 412) PLATELET COUNT (BEAKER) (test 351 K/CU MM 150-450 code = 756) MEAN PLATELET VOLUME (BEAKER) 9.9 fL 9.4-12.4 (test code = 754) NUCLEATED RED BLOOD CELLS 0 /100 WBC 0-0 (BEAKER) (test code = 413) NEUTROPHILS RELATIVE PERCENT 39 % (BEAKER) (test code = 429) LYMPHOCYTES RELATIVE PERCENT 45 % (BEAKER) (test code = 430) MONOCYTES RELATIVE PERCENT 8 % (BEAKER) (test code = 431) EOSINOPHILS RELATIVE PERCENT 7 % (BEAKER) (test code = 432) BASOPHILS RELATIVE PERCENT 1 % (BEAKER) (test code = 437) NEUTROPHILS ABSOLUTE COUNT 2.60 K/ L 1.78-5.38 (BEAKER) (test code = 670) LYMPHOCYTES ABSOLUTE COUNT 3.00 K/ L 1.32-3.57 (BEAKER) (test code = 414) MONOCYTES ABSOLUTE COUNT (BEAKER) 0.55 K/ L 0.30-0.82 (test code = 415) EOSINOPHILS ABSOLUTE COUNT 0.48 K/ L 0.04-0.54 (BEAKER) (test code = 416) BASOPHILS ABSOLUTE COUNT (BEAKER) 0.05 K/ L 0.01-0.08 (test code = 417) IMMATURE GRANULOCYTES-RELATIVE 0 % 0-1 PERCENT (BEAKER) (test code = 2801) [id number] 13:36:00 Test Item Value Reference Range Interpretation Comments PHOSPHORUS (BEAKER) (test code = 3.2 mg/dL 2.3-4.7 604) [id number] 13:36:00 Test Item Value Reference Range Interpretation Comments MAGNESIUM (BEAKER) (test code = 2.1 mg/dL 1.6-2.6 627) COMPREHENSIVE METABOLIC [id number] 13:36:00 Test Item Value Reference Range Interpretation Comments TOTAL PROTEIN 6.7 gm/dL 6.0-8.3 (BEAKER) (test code = 770) ALBUMIN (BEAKER) 4.3 g/dL 3.5-5.0 (test code = 1145) ALKALINE PHOSPHATASE 94 U/L 40-150 (BEAKER) (test code = 346) BILIRUBIN TOTAL 0.3 mg/dL 0.2-1.2 (BEAKER) (test code = 377) SODIUM (BEAKER) (test 140 meq/L 136-145 code = 381) POTASSIUM (BEAKER) 3.9 meq/L 3.5-5.1 (test code = 379) CHLORIDE (BEAKER) 108 meq/L 98-107 H (test code = 382) CO2 (BEAKER) (test 25 meq/L 22-29 code = 355) BLOOD UREA NITROGEN 12 mg/dL 7-21 (BEAKER) (test code = 354) CREATININE (BEAKER) 0.77 mg/dL 0.57-1.25 (test code = 358) GLUCOSE RANDOM 140 mg/dL 70-105 H (BEAKER) (test code = 652) CALCIUM (BEAKER) 9.2 mg/dL 8.4-10.2 (test code = 697) AST (SGOT) (BEAKER) 15 U/L 5-34 (test code = 353) ALT (SGPT) (BEAKER) 21 U/L 6-55 (test code = 347) EGFR (BEAKER) (test 128 ESTIMATE D GFR IS code = 1092) mL/min/1.73 sq NOT ACCURA TE m CREATININE CLEARANCE IN PREDICTING GLOMERULAR FILTRATION RATE . ESTIMATED GFR I S NOT APPLICABLE FOR DIALYSIS PATIEN TS. GAMMA GLUTAMYL TRANSFERASE (GGT)[id number] 13:36:00 Test Item Value Reference Range Interpretation Comments GAMMA GLUTAMYL TRANSFERASE (BEAKER) 14 U/L 9-64 (test code = 364) TOBRAMYCIN LEVEL, [id number] 13:35:00 Test Item Value Reference Range Interpretation Comments TOBRAMYCIN RANDOM (BEAKER) (test code < ug/mL = 544) Reference Range: No NormalsRandom level to be drawn 12 hours after first dose. POCT-GLUCOSE [id number] 13:11:00 Test Item Value Reference Range Interpretation Comments POC-GLUCOSE METER 133 mg/dL 70-110 H TESTED AT [facility] 67[address] ([facility]) (test code = [place] [address]95) [id number] CF RESPIRATORY [id number] 15:11:00 Test Item Value Reference Range Interpretation Comments CULTURE (BEAKER) (test A <1+ P seudomonas aeruginosa code = 1095) 2+ Normal respiratory tip presentCF RESPIRATORY [id number] 18:53:00 Test Item Value Reference Range Interpretation Comments CULTURE 2+ Normal A <1+ Streptococc us (BEAKER) (test respiratory tip agalacti aeThis is an code = 1095) present appended report . These organism results have be en appended to a previously kanwal l verified report . 2+ Normal respiratory tip presentAFB CULTURE + [id number] 13:02:00 Test Item Value Reference Range Interpretation Comments CULTURE (BEAKER) (test No acid-fast bacilli code = 1095) isolated in 42 days AFB SMEAR (BEAKER) No acid fast bacilli (test code = 994) seen FUNGUS CULTURE + [id number] 13:20:00 Test Item Value Reference Range Interpretation Comments CULTURE (BEAKER) A 2+ Tanika albicans (test code = 1095) FUNGUS SMEAR No fungi seen (BEAKER) (test code = 1406) CF RESPIRATORY [id number] 08:56:00 Test Item Value Reference Range Interpretation Comments CULTURE (BEAKER) PSEUDOMONAS A 2+ Pseudomo fco (test code = 1095) AERUGINOSA aeruginos a Amikacin (test code Susceptible 0-16 R = 1) , Resistant <0 or >16 Aztreonam (test Susceptible 0-8 R code = 32) , Resistant <0 or >8 Cefepime (test code Susceptible 0-8 R = 51) , Resistant <0 or >8 Ceftazidime (test Susceptible 0-8 R code = 27) , Resistant <0 or >8 Ciprofloxacin (test Susceptible 0-1 S code = 7) , Resistant <0 or >1 Doripenem (test Susceptible 0-2 R code = 100) , Resistant <0 or >2 Gentamicin (test Susceptible 0-4 R code = 18) , Resistant <0 or >4 Imipenem (test code Susceptible 0-2 R = 19) , Resistant <0 or >2 Levofloxacin (test Susceptible 0-2 S code = 22) , Resistant <0 or >2 Meropenem (test Susceptible 0-2 R code = 34) , Resistant <0 or >2 Piperacillin (test Susceptible 0-16 R code = 24) , Resistant <0 or >16 Piperacillin + Susceptible 0-16 R Tazobactam (test , Resistant <0 code = 29) or >16 Tobramycin (test Susceptible 0-4 R code = 25) , Resistant <0 or >4 CULTURE (BEAKER) A 1+ Beta-hem olytic (test code = 1095) streptoco ccus group B, by serological grouping CULTURE (BEAKER) PSEUDOMONAS A 2+ Pseudomo fco (test code = 1095) AERUGINOSA aeruginos aof a second type Amikacin (test code Susceptible 0-16 R = 1) , Resistant <0 or >16 Aztreonam (test Susceptible 0-8 R code = 32) , Resistant <0 or >8 Cefepime (test code Susceptible 0-8 R = 51) , Resistant <0 or >8 Ceftazidime (test Susceptible 0-8 R code = 27) , Resistant <0 or >8 Ciprofloxacin (test Susceptible 0-1 R code = 7) , Resistant <0 or >1 Doripenem (test Susceptible 0-2 R code = 100) , Resistant <0 or >2 Gentamicin (test Susceptible 0-4 R code = 18) , Resistant <0 or >4 Imipenem (test code Susceptible 0-2 R = 19) , Resistant <0 or >2 Levofloxacin (test Susceptible 0-2 R code = 22) , Resistant <0 or >2 Meropenem (test Susceptible 0-2 R code = 34) , Resistant <0 or >2 Piperacillin (test Susceptible 0-16 R code = 24) , Resistant <0 or >16 Piperacillin + Susceptible 0-16 R Tazobactam (test , Resistant <0 code = 29) or >16 Tobramycin (test Susceptible 0-4 R code = 25) , Resistant <0 or >4 CULTURE (BEAKER) PSEUDOMONAS A 2+ Pseudomo fco (test code = 1095) AERUGINOSA aeruginos aof a third type Amikacin (test code Susceptible 0-16 R = 1) , Resistant <0 or >16 Aztreonam (test Susceptible 0-8 S code = 32) , Resistant <0 or >8 Cefepime (test code Susceptible 0-8 S = 51) , Resistant <0 or >8 Ceftazidime (test Susceptible 0-8 S code = 27) , Resistant <0 or >8 Ciprofloxacin (test Susceptible 0-1 S code = 7) , Resistant <0 or >1 Doripenem (test Susceptible 0-2 S code = 100) , Resistant <0 or >2 Gentamicin (test Susceptible 0-4 R code = 18) , Resistant <0 or >4 Imipenem (test code Susceptible 0-2 R = 19) , Resistant <0 or >2 Levofloxacin (test Susceptible 0-2 R code = 22) , Resistant <0 or >2 Meropenem (test Susceptible 0-2 S code = 34) , Resistant <0 or >2 Piperacillin (test Susceptible 0-16 S code = 24) , Resistant <0 or >16 Piperacillin + Susceptible 0-16 R Tazobactam (test , Resistant <0 code = 29) or >16 Tobramycin (test Susceptible 0-4 S code = 25) , Resistant <0 or >4 4+ Normal respiratory tip presentSPIN/CONCENTRATION [id number] 06:53:00 Test Item Value Reference Range Interpretation Comments CONCENTRATION CHARGED (BEAKER) (test Done code = 2657) CF RESPIRATORY [id number] 15:11:00 Test Item Value Reference Range Interpretation Comments CULTURE (BEAKER) 3+ Normal respiratory (test code = 1095) tip present CF RESPIRATORY [id number] 02:05:00 Test Item Value Reference Range Interpretation Comments CULTURE (BEAKER) 3+ Normal respiratory (test code = 1095) tip present
[2022-04-16 07:43] LABS: Absolute Lymphocytes (CBC) 3.6 K/uL (0.7-4.9); Hematocrit 45.6 % (39.6-49.0); Lymphocytes % 52.4 % (15.3-44.8); MCV 87.8 fL (80-100); MPV 7.2 fL (7.6-11.3)
[2022-04-16 08:00] LABS: Potassium 3.8 mmol/L (3.5-5.1)
[2022-04-16] MEDS ORDERED: IBUPROFEN 400 MG TAB ONE (09:23)
[2022-04-16] MEDS ORDERED: IBUPROFEN 200 MG TAB PO ONE (09:24)
--- NOTE | 2022-04-16 15:20 | ER ---
Nurse's Notes [facility] Name: Omaira Castro Age: 27 yrs Sex: Male : 1995 Arrival Date: 04/16/2022 Time: 07:23 Bed 20 Private MD: Diagnosis: Hypoglycemia, unspecified Presentation: 04/16 07:25 Chief complaint: EMS states: Toned out for seizure witnessed by family. Family stated vg1 pt didn't wake up when suppose to and walked into room and pt was seizing. Upon arrival, pt BGL was 42, pt was given 25 g of D10 IV. Reassessment of BGL 184. Pt reports no hx of seizures. Coronavirus screen: Vaccine status: Patient reports receiving the 2nd dose of the covid vaccine. Client denies travel out of the [place] in the last 14 days. Ebola Screen: Patient negative for fever greater than or equal to 101.5 degrees Fahrenheit, and additional compatible Ebola Virus Disease symptoms. Initial Sepsis Screen: Does the patient meet any 2 criteria? No. Patient's initial sepsis screen is negative. Does the patient have a suspected source of infection? No. Patient's initial sepsis screen is negative. Risk Assessment: Do you want to hurt yourself or someone else? Patient reports no desire to harm self or others. Onset of symptoms was April 16, 2022. 07:25 Method Of Arrival: EMS: [facility] vg1 07:25 Acuity: GIANNI 3 vg1 07:25 Care prior to arrival: Medication(s) given: IV initiated. 20 GA, in the left forearm. vg1 Triage Assessment: 07:27 General: Appears in no apparent distress. uncomfortable, Behavior is calm, cooperative. vg1 Pain: Denies pain. Neuro: Level of Consciousness is awake, alert, obeys commands, Oriented to person, place, time, situation. Cardiovascular: Patient's skin is warm and dry. Respiratory: Airway is patent Respiratory effort is even, unlabored. Historical: - Allergies: 07:27 Augmentin; vg1 07:27 Ceftin; vg1 - Home Meds: 07:27 Creon oral [Active]; Zyrtec Oral [Active]; Daily Vitamin Formula oral [Active]; vg1 07:27 novolog [Active]; Lantus Sub-Q [Active]; aa5 - PMHx: 07:27 CYSTIC FIBROSIS; Diabetes - IDDM; vg1 - Immunization history:: Client reports receiving the 2nd dose of the Covid vaccine. - Social history:: Smoking status: Patient denies any tobacco usage or history of. Screenin:30 [facility] ED Fall Risk Assessment (Adult) History of falling in the last 3 months, vg1 including since admission No falls in past 3 months (0 pts) Confusion or Disorientation No (0 pts) Intoxicated or Sedated No (0 pts) Impaired Gait Mobility Assist Device Used No (0 pt) Altered Elimination No (0 pt) Score/Fall Risk Level 0 - 2 = Low Risk Oriented to surroundings, Maintained a safe environment, Educated pt \\T\\ family on fall prevention, incl call for assistance when getting out of bed, Assessed \\T\\ reinforced patient's understanding of fall precautions. Abuse screen: Denies threats or abuse. Denies injuries from another. Nutritional screening: No deficits noted. Tuberculosis screening: No symptoms or risk factors identified. Assessment: 07:24 General: Appears comfortable, Behavior is calm, cooperative, Reports feeling sleepy, pt aa5 states he is unable to recall if he had dinner last night. Pain: Denies pain. Neuro: Level of Consciousness is awake, alert, obeys commands, Oriented to person, place, time, situation. Cardiovascular: Heart tones S1 S2 present Rhythm is regular. Respiratory: Airway is patent Respiratory effort is even, unlabored, Respiratory pattern is regular, symmetrical. GI: No signs and/or symptoms were reported involving the gastrointestinal system. : No signs and/or symptoms were reported regarding the genitourinary system. EENT: No signs and/or symptoms were reported regarding the EENT system. Derm: Skin is pink, warm \\T\\ dry. Musculoskeletal: Range of motion: intact in all extremities. 07:40 Reassessment: Dr. Hoskins at bedside . aa5 08:13 Reassessment: Patient is alert, oriented x 3, equal unlabored respirations, skin aa5 warm/dry/pink. Pt ambulatory to restroom with steady gait. . 08:20 Reassessment: Patient is alert, oriented x 3, equal unlabored respirations, skin aa5 warm/dry/pink. Pt sitting up in bed eating breakfast, pt tolerating well. . 10:38 Reassessment: at bedside stating "she is worried because his BS is getting to kr3 high". Last FSBS check was 299. Spoke with Dr. Hoskins and he advised the patient to correct with his personal insulin as he would do at home. 11:00 Reassessment: patients blood sugar correcting itself, instructed not to give insulin. kr3 patients current blood sugar per patient sensor is 223. 11:24 Reassessment: Patient appears in no apparent distress at this time. Patient and/or kr3 family updated on plan of care and expected duration. Pain level reassessed. Patient is alert, oriented x 3, equal unlabored respirations, skin warm/dry/pink. patient blood sugar per personal sensor is 181. 12:19 Reassessment: provided patient with peanut butter and jelly, baked lays and water to kr3 increase BS. 13:17 Reassessment: Patient appears in no apparent distress at this time. Patient and/or kr3 family updated on plan of care and expected duration. Pain level reassessed. Patient is alert, oriented x 3, equal unlabored respirations, skin warm/dry/pink. mother and at bedside concerned with 274 BS from patient sensor. reassured patient, mother and we were monitoring and would provide interventions as necessary. 14:15 Reassessment: Patient appears in no apparent distress at this time. Patient and/or kr3 family updated on plan of care and expected duration. Pain level reassessed. Patient is alert, oriented x 3, equal unlabored respirations, skin warm/dry/pink. 15:12 Reassessment: Patient and/or family updated on plan of care and expected duration. Pain kr3 level reassessed. Patient is alert, oriented x 3, equal unlabored respirations, skin warm/dry/pink. Vital Signs: 07:25 BP 123 / 89; Pulse 85; Resp 16; Temp 97.3(TE); Pulse Ox 100% on R/A; Weight 52.16 kg; vg1 Height 5 ft. 4 in. (162.56 cm); Pain 0/10; 09:13 BP 126 / 91; Pulse 91; Resp 20 S; Pulse Ox 100% on R/A; Pain 5/10; kc6 10:00 BP 107 / 63; Pulse 78; Resp 18; Pulse Ox 98% on R/A; kr3 11:00 BP 120 / 76; Pulse 80; Resp 18; Pulse Ox 98% on R/A; kr3 12:00 BP 132 / 78; Pulse 81; Resp 18; Pulse Ox 97% on R/A; kr3 13:00 BP 127 / 79; Pulse 87; Resp 18; Pulse Ox 100% on R/A; kr3 14:00 BP 117 / 77; Pulse 73; Resp 17; Pulse Ox 98% on R/A; kr3 15:16 BP 109 / 69; Pulse 81; Resp 18; Pulse Ox 100% ; kr3 07:25 Body Mass Index 19.74 (52.16 kg, 162.56 cm) vg1 ED Course: 07:23 Patient arrived in ED. aa5 07:25 Kirsty Rossi, RN is Primary Nurse. aa5 07:27 Triage completed. vg1 07:27 Arm band placed on. vg1 07:30 Van Hoskins MD is Attending Physician. kdr 07:30 Patient has correct armband on for positive identification. Bed in low position. Call vg1 light in reach. Side rails up X 1. Seizure precautions initiated. 07:35 Initial lab(s) drawn, by oh, sent to lab. aa5 07:35 Maintain EMS IV. Dressing intact. Good blood return noted. Site clean \\T\\ dry. Gauge \\T\\ aa 5 site: 20G L FA. 09:00 Report given to MICHAEL Gomez. aa5 15:31 No provider procedures requiring assistance completed. IV discontinued, intact, kr3 bleeding controlled, No redness/swelling at site. Pressure dressing applied. Administered Medications: No medications were administered Medication: 07:31 VIS not applicable for this client. vg1 Outcome: 15:20 Discharge ordered by . kdr 15:31 Patient left the ED. kr3 15:31 Discharged to home ambulatory. kr3 15:31 Condition: stable 15:31 Discharge instructions given to patient, Instructed on discharge instructions, follow up and referral plans. Demonstrated understanding of instructions, follow-up care. Signatures: Van Hoskins MD MD kdr Kirsty Rossi, RN RN aa5 Flaca Sultana RN RN vg1 Patricia Camilo RN RN kr3 Maritza Sheppard RN RN kc6 Corrections: (The following items were deleted from the chart) 07:29 07:25 Chief complaint: EMS states: Toned out for seizure witnessed by family. Family vg1 stated pt didn't wake up when suppose to and walked into room and pt was seizing. Upon arrival, pt BGL was 42, pt was given 25 g of D10 IV. Reassessment of BGL 184. vgRashi 07:29 07:25 Coronavirus screen: Vaccine status: Patient reports being unvaccinated. Client vg1 denies travel out of the [place] in the last 14 days. vg1
--- NOTE | 2022-04-16 15:20 | EDPHYS ---
Physician Documentation [facility] Name: Omaira Castro Age: 27 yrs Sex: Male : 1995 Arrival Date: 04/16/2022 Time: 07:23 Bed 20 Private MD: ED Physician Van Hoskins HPI: 04/16 08:50 This 27 yrs old Male presents to ER via EMS with complaints of Low Blood Sugar. kdr 08:50 Patient's family states that he has had difficulty controlling his blood sugar through kdr the evening the for the last week or so. He indicated has been getting very low. They have not changed his medication routine. He normally takes insulin on a sliding scale in the evening. Patient also denies any illness, nausea, vomiting, diarrhea or other factors which may contribute to poorly controlled blood glucose. Patient currently is alert and oriented and appropriate. He was given glucose by EMS prior to arrival. Patient is alert and oriented and completely nontoxic at this time.. Onset: The symptoms/episode began/occurred gradually, just prior to arrival, this morning. Severity of symptoms: At their worst the symptoms were mild moderate in the emergency department the symptoms are unchanged. The patient has not experienced similar symptoms in the past. The patient has not recently seen a physician. Patient and family states his glucose has been getting down to around 40 in the evening. This morning he was noted to have a blood glucose around 40 and family is concerned that he may have had a brief seizure.. Historical: - Allergies: 07:27 Augmentin; vg1 07:27 Ceftin; vg1 - Home Meds: 07:27 Creon oral [Active]; Zyrtec Oral [Active]; Daily Vitamin Formula oral [Active]; vg1 07:27 novolog [Active]; Lantus Sub-Q [Active]; aa5 - PMHx: 07:27 CYSTIC FIBROSIS; Diabetes - IDDM; vg1 - Immunization history:: Client reports receiving the 2nd dose of the Covid vaccine. - Social history:: Smoking status: Patient denies any tobacco usage or history of. ROS: 08:50 Constitutional: Negative for fever, chills, and weight loss, Eyes: Negative for injury, kdr pain, redness, and discharge, ENT: Negative for injury, pain, and discharge, Neck: Negative for injury, pain, and swelling, Cardiovascular: Negative for chest pain, palpitations, and edema, Respiratory: Negative for shortness of breath, cough, wheezing, and pleuritic chest pain, Abdomen/GI: Negative for abdominal pain, nausea, vomiting, diarrhea, and constipation, Back: Negative for injury and pain, : Negative for injury, bleeding, discharge, and swelling, MS/Extremity: Negative for injury and deformity, Skin: Negative for injury, rash, and discoloration, Neuro: Negative for headache, weakness, numbness, tingling, and seizure activity. Psych: Negative for depression, anxiety, suicide ideation, homicidal ideation, and hallucinations, Allergy/Immunology: Negative for hives, rash, and allergies, Hematologic/Lymphatic: Negative for swollen nodes, abnormal bleeding, and unusual bruising. 08:50 Endocrine: Positive for Negative for polydipsia, polyphagia, polyuria, weight gain, weight loss, Patient has had altered mental status secondary to low glucose levels. Exam: 08:50 Constitutional: This is a well developed, well nourished patient who is awake, alert, kdr and in no acute distress. Head/Face: Normocephalic, atraumatic. Eyes: Pupils equal round and reactive to light, extra-ocular motions intact. Lids and lashes normal. Conjunctiva and sclera are non-icteric and not injected. Cornea within normal limits. Periorbital areas with no swelling, redness, or edema. Neck: Trachea midline, no thyromegaly or masses palpated, and no cervical lymphadenopathy. Supple, full range of motion without nuchal rigidity, or vertebral point tenderness. No Meningismus. Chest/axilla: Normal chest wall appearance and motion. Nontender with no deformity. No lesions are appreciated. Cardiovascular: Regular rate and rhythm with a normal S1 and S2. No gallops, murmurs, or rubs. Normal PMI, no JVD. No pulse deficits. Respiratory: Lungs have equal breath sounds bilaterally, clear to auscultation and percussion. No rales, rhonchi or wheezes noted. No increased work of breathing, no retractions or nasal flaring. Abdomen/GI: Soft, non-tender, with normal bowel sounds. No distension or tympany. No guarding or rebound. No evidence of tenderness throughout. Back: No spinal tenderness. No costovertebral tenderness. Full range of motion. Skin: Warm, dry with normal turgor. Normal color with no rashes, no lesions, and no evidence of cellulitis. MS/ Extremity: Pulses equal, no cyanosis. Neurovascular intact. Full, normal range of motion. Neuro: Awake and alert, GCS 15, oriented to person, place, time, and situation. Cranial nerves II-XII grossly intact. Motor strength 5/5 in all extremities. Sensory grossly intact. Cerebellar exam normal. Normal gait. Psych: Awake, alert, with orientation to person, place and time. Behavior, mood, and affect are within normal limits. Vital Signs: 07:25 BP 123 / 89; Pulse 85; Resp 16; Temp 97.3(TE); Pulse Ox 100% on R/A; Weight 52.16 kg; vg1 Height 5 ft. 4 in. (162.56 cm); Pain 0/10; 09:13 BP 126 / 91; Pulse 91; Resp 20 S; Pulse Ox 100% on R/A; Pain 5/10; kc6 10:00 BP 107 / 63; Pulse 78; Resp 18; Pulse Ox 98% on R/A; kr3 11:00 BP 120 / 76; Pulse 80; Resp 18; Pulse Ox 98% on R/A; kr3 12:00 BP 132 / 78; Pulse 81; Resp 18; Pulse Ox 97% on R/A; kr3 13:00 BP 127 / 79; Pulse 87; Resp 18; Pulse Ox 100% on R/A; kr3 14:00 BP 117 / 77; Pulse 73; Resp 17; Pulse Ox 98% on R/A; kr3 15:16 BP 109 / 69; Pulse 81; Resp 18; Pulse Ox 100% ; kr3 07:25 Body Mass Index 19.74 (52.16 kg, 162.56 cm) vg1 MDM: 08:50 Data reviewed: vital signs, nurses notes, lab test result(s), radiologic studies. I kdr considered the following discharge prescriptions or medication management in the emergency department Medications were administered in the Emergency Department. See APR. 15:20 Patient medically screened. kdr 04/16 07:34 Order name: CBC with Diff aa5 04/16 07:34 Order name: Basic Metabolic Panel aa5 04/16 07:38 Order name: Glucose, Ancillary Testing; Complete Time: 10:15 EDMS 04/16 07:43 Order name: CBC with Automated Diff; Complete Time: 10:15 EDMS 04/16 08:00 Order name: Basic Metabolic Panel; Complete Time: 10:15 EDMS 04/16 09:15 Order name: Glucose, Ancillary Testing; Complete Time: 10:15 EDMS 04/16 07:26 Order name: Diet Regular; Complete Time: 07:27 kc6 04/16 07:34 Order name: IV; Complete Time: 07:34 aa5 04/16 10:15 Order name: Glucose, Ancillary Testing; Complete Time: 11:08 EDMS 04/16 10:39 Order name: Glucose, Ancillary Testing; Complete Time: 11:08 EDMS 04/16 12:16 Order name: Glucose, Ancillary Testing EDMS Administered Medications: No medications were administered Disposition Summary: 04/16/22 15:20 Discharge Ordered Location: Home kdr Problem: new kdr Symptoms: have improved kdr Condition: Stable kdr Diagnosis - Hypoglycemia, unspecified kdr Followup: kdr - With: Private Physician - When: 2 - 3 days - Reason: If symptoms return, Further diagnostic work-up, Recheck today's complaints, Continuance of care, Re-evaluation by your physician Discharge Instructions: - Discharge Summary Sheet kdr - Blood Glucose Monitoring, Adult kdr - Hypoglycemia, [id number] kdr - Preventing Hypoglycemia kdr Forms: - Medication Reconciliation Form kdr - Thank You Letter kdr Signatures: Dispatcher [employer] Van Montejo MD MD kdr Kirsty Rossi, RN RN aa5 Flaca Sultana RN RN vg1 Viridiana Willson REPRINT SORTER REPRINT SORTER 7
[2022-04-16 15:37] VITALS: TEMP 97.3
[2022-04-16 15:46] VITALS: BP 109/69; O2SAT 100
== END 2022-04-16 15:31 | disposition home or self-care (01) ==
LOC: ER 07:19
DX: E11.649 Type 2 diabetes mellitus with hypoglycemia without coma (principal); Z79.4 Long term (current) use of insulin; Z88.1 Allergy status to other antibiotic agents
CPT/HCPCS: 36415; 80048; 82947; 85025; 99283